=== PATIENT | female | born 1960 | race Caucasian/White ===

== ENCOUNTER → 2020-03-01 16:25 | Outpatient (BNVA) | payer OTHER, SELFPAY | PROVIDERS: Family Provider Nurse Practitioner Family; PCP Registered Nurse; Visit Provider Nurse Practitioner Family | DX: Z79.899 Other long term (current) drug therapy (principal); I10 Essential (primary) hypertension | CPT/HCPCS: 80048 ==

== ENCOUNTER → 2020-05-28 08:55 | Outpatient (BNVA) | payer OTHER, SELFPAY | PROVIDERS: Family Provider Nurse Practitioner Family; PCP Registered Nurse; Visit Provider Internal Medicine | DX: Z12.11 Encounter for screening for malignant neoplasm of colon (principal); Z20.828 Contact with and (suspected) exposure to other viral communicable diseases | CPT/HCPCS: 87635 ==

== ENCOUNTER 2020-05-31 05:53 | Day surgery (SDC) | payer OTHER, SELFPAY ==
[2020-05-27 10:56] VITALS: BMI 29.2
[2020-05-31 06:04] VITALS: BP 135/88; PULSE 76; RESP 20; TEMP 36.5; O2SAT 99
[2020-05-31 06:06] VITALS: BMI 29.2
[2020-05-31] MEDS: sodium chloride 0.9% 1,000 ML 30 ML IV (06:26)
--- NOTE | 2020-05-31 06:54 | W.PM.OPSFHP ---
Same Day Surgery H&P Indication for Procedure/HPI DATE OF PROCEDURE: May 31, 2020 CHIEF COMPLAINT/INDICATIONFOR SURGICAL PROCEDURE: Family history of colon cancer, PREOP DIAGNOSIS: Family history of colon cancer PLANNED PROCEDRUE: Operation Date: 05/31/20 07:05 Proposed Procedures p Colonoscopy 57743 Z12.11(Not Applicable) - Arash Sommers MD Medications/Allergies* Allergies/Adverse Reactions Allergy/AdvReac Type Severity Reaction Status Date / Time Sulfa (Sulfonamide Allergy Mild RASH Verified 05/31/20 06:24 Antibiotics) Current Medications: Generic Name Dose Route Start Last Admin Trade Name Freq PRN Reason Stop Dose Admin Sodium Chloride 1,000 mls @ 30 mls/hr 05/31/20 06:15 05/31/20 06:26 Sodium Chloride 0.9% IV 06/01/20 06:14 30 mls/hr .Q24H SHANIQUA Administration Pertinent History/Comorbid Conditions* Medical History (Updated 05/06/20 @ 16:22 by Shyann Bro APN, SHAUN) Hemorrhoid Hypertension Osteoarthritis Postmenopausal HRT (hormone replacement therapy) Surgical History (Updated 05/06/20 @ 16:09 by Shyann Bro APN, SHAUN) H/O arthroscopy of knee (~2018) right meniscal tear repair H/O dilation and curettage History of total abdominal hysterectomy and bilateral salpingo-oophorectomy (~1991) Family History (Updated 05/06/20 @ 16:57 by Shyann Bro APN, SHAUN) Skin cancer Father Dementia Mother Cancer Family/Other 3 Aunts with Colon cancer Hypertension Parkinsons Mother Thyroid disease Father Mother Social History Additional social history: Tobacco use: Denies Alcohol use: Denies Drug use: Denies Pertinent Exam Findings alert, oriented x 3, clear to auscultation bilaterally and regular rate & rhythm Recommendations Surgery/Procedure today Coding Level of Care Code Acute Professor Of Literature for Inderjit Rosenthal
--- NOTE | 2020-05-31 06:57 | ANES.PREANE2 ---
Pre-Anesthetic Assessment Pre-Anesthetic Assessment: Height/Weight: Height 1.57 m Weight 72.575 kg Temp Pulse Resp BP Pulse Ox 97.7 F 76 20 H 135/88 99 05/31/20 06:04 05/31/20 06:04 05/31/20 06:04 05/31/20 06:04 05/31/20 06:04 Preop Diagnosis: Family history of colon cancer Proposed Procedure: Operation Date: 05/31/20 07:05 Proposed Procedures p Colonoscopy 71241 Z12.11(Not Applicable) - Arash Sommers MD Was Beta Evaristo taken within 24 hours: N/A Last intake: Intake Last Liquid Date 05/30/20 Last Liquid Time 20:30 Last Solid Date 05/29/20 Last Solid Time 08:00 Social: Social History: No alcohol and No tobacco Exam: Pre-Anes Outpt Exam: alert, oriented x 3, clear to auscultation bilaterally and regular rate & rhythm Airway: Submandibular: WNL Cervical ROM: WNL MP: 1 History/ROS: No significant history except as noted Pulmonary: Pulmonary: None reported CV/HEM: CV/HEM: HTN : : None reported Hepatic: Hepatic: None reported GI: GI: None reported Metabolic: Metabolic: None reported Musc/skel: Musc/skel: None reported Neuropsych: Neuropsych: None reported Anesthetic Plan: ASA status: 1 Anesthesia: Anesthesia Evaluation and MAC Risk of > 500 ml blood loss (7ml/kg in children): No Meds/Allergies Current Medications: Current Medications Generic Name Dose Route Start Last Admin Trade Name Freq PRN Reason Stop Dose Admin Sodium Chloride 1,000 mls @ 30 ml s/hr 05/31/20 06:15 05/31/20 06:26 Sodium Chloride 0.9% IV 06/01/20 06:14 30 mls/hr .Q24H SHANIQUA Administration PFSH Anesthesia PFSH: Medical History (Updated 05/06/20 @ 16:22 by Shyann Bro APN, SHAUN) Hemorrhoid Hypertension Osteoarthritis Postmenopausal HRT (hormone replacement therapy) Surgical History (Updated 05/06/20 @ 16:09 by Shyann Bro APN, SHAUN) H/O arthroscopy of knee (~2018) right meniscal tear repair H/O dilation and curettage History of total abdominal hysterectomy and bilateral salpingo-oophorectomy (~1991) Family History (Updated 05/06/20 @ 16:57 by Shyann Bro APN, SHAUN) Family/Other Cancer 3 Aunts with Colon cancer Father Thyroid disease Skin cancer Mother Thyroid disease Parkinsons Dementia Other Hypertension Social History (Updated 05/06/20 @ 16:10 by Shyann Bro APN, SHAUN) Additional social history: Tobacco use: Denies Alcohol use: Denies Drug use: Denies Data Anesthesia Cardiac Studies: No Data to Display
[2020-05-31 07:39] VITALS: BP 119/70; PULSE 75; RESP 16; TEMP 36.1; O2SAT 98
[2020-05-31 07:49] VITALS: BP 135/80; PULSE 71; RESP 18; O2SAT 99
== END 2020-05-31 08:05 | disposition home or self-care (01) ==
PROVIDERS: Family Provider Nurse Practitioner Family; PCP Registered Nurse; Visit Provider Surgery
PROC: 0DJD8ZZ Inspection of Lower Intestinal Tract, Via Natural or Artificial Opening Endoscopic (ICD-10-PCS; CPT 45378; principal; 2020-05-31 07:00)
DX: Z12.11 Encounter for screening for malignant neoplasm of colon (principal); K63.5 Polyp of colon; K57.30 Diverticulosis of large intestine without perforation or abscess without bleeding; K64.8 Other hemorrhoids; I10 Essential (primary) hypertension; Z88.2 Allergy status to sulfonamides; Z80.0 Family history of malignant neoplasm of digestive organs
CPT/HCPCS: 12345; 45380; 88305; J2704; J7030

== ENCOUNTER 2020-06-25 14:48 | Outpatient (CLI) | payer OTHER, SELFPAY ==
--- NOTE | 2020-06-25 15:00 | MM_ITS ---
WS: [id number] BILATERAL DIGITAL SCREENING MAMMOGRAPHY WITH CAD CLINICAL INFORMATION: screening HISTORY: Screening mammogram. No current complaints. COMPARISON: TECHNIQUE: Bilateral CC and MLO views. FINDINGS: The breasts are composed of heterogeneous fibroglandular density tissue, which can limit the detectio n of small underlying mass lesions. No suspicious mass, asymmetry, calcifications, or architectural d istortion. No evidence of malignancy. Punctate calcifications. MM/[place] [id number] IMPRESSION: BI-RADS: 2-Benign FOLLOW UP: 1 Year Follow-up Recommend return to annual screening mammography.
== END 2020-06-25 14:49 | disposition home or self-care (01) ==
LOC: RADSHAW 14:53
PROVIDERS: PCP Registered Nurse; Visit Provider Nurse Practitioner Women's Health
DX: Z12.31 Encounter for screening mammogram for malignant neoplasm of breast (principal)
CPT/HCPCS: 77067

== ENCOUNTER → 2020-09-23 10:40 | Outpatient (BNVA) | payer OTHER, SELFPAY | PROVIDERS: PCP Registered Nurse; Visit Provider Nurse Practitioner Family | DX: I10 Essential (primary) hypertension (principal); M19.90 Unspecified osteoarthritis, unspecified site | CPT/HCPCS: 80048 ==

== ENCOUNTER 2021-06-30 15:15 | Outpatient (CLI) | payer OTHER, SELFPAY ==
--- NOTE | 2021-06-30 15:30 | MM_ITS ---
WS: [id number] BILATERAL SCREENING DIGITAL MAMMOGRAM WITH CAD HISTORY: Z12.39 - Encounter for other screening for malignant neoplasm... COMPARISON: 06/25/2020, 07/12/2018 Bilateral CC and MLO views submitted. Computer aided detection analyzed. Breast composition: The breasts are extremely dense, which lowers the sensitivity of mammography. No suspicious masses, microcalcifications or architectural distortion. Numerous calcifications are scatt ered within each breast. There are extensive asymmetries. No interval change. MM/[place] [id number] IMPRESSION: BI-RADS: 2-Benign FOLLOW UP: 1 Year Follow-up
== END 2021-06-30 15:16 | disposition home or self-care (01) ==
LOC: RADSHAW 15:19
PROVIDERS: PCP Registered Nurse; Visit Provider Nurse Practitioner Women's Health
DX: Z12.31 Encounter for screening mammogram for malignant neoplasm of breast (principal)
CPT/HCPCS: 77067

== ENCOUNTER 2021-08-23 10:55 | Outpatient (CLI) | payer OTHER, SELFPAY ==
[2021-08-23 11:10] VITALS: BP 143/83; PULSE 73; RESP 18; TEMP 36.8; O2SAT 73; BMI 29.2
[2021-08-23 11:38] VITALS: BMI 29.2
[2021-08-23 11:56] VITALS: BP 130/80; PULSE 69; RESP 20; TEMP 36.3; O2SAT 94
[2021-08-23 12:00] VITALS: BP 130/78; PULSE 73; RESP 18; TEMP 36.9; O2SAT 98
[2021-08-23 13:00] VITALS: BP 130/78; PULSE 73; RESP 18; TEMP 36.9
== END 2021-08-23 10:56 | disposition home or self-care (01) ==
PROVIDERS: PCP Registered Nurse; Visit Provider Nurse Practitioner Family
DX: U07.1 COVID-19 (principal)
CPT/HCPCS: 96365

== ENCOUNTER → 2021-10-13 11:57 | Outpatient (BNVA) | payer OTHER, SELFPAY | PROVIDERS: PCP Registered Nurse; Visit Provider Family Medicine | DX: M25.561 Pain in right knee (principal); M17.11 Unilateral primary osteoarthritis, right knee; M19.90 Unspecified osteoarthritis, unspecified site; I10 Essential (primary) hypertension; Z13.820 Encounter for screening for osteoporosis; M54.50 Low back pain, unspecified; G89.29 Other chronic pain; Z76.89 Persons encountering health services in other specified circumstances | CPT/HCPCS: 80053; 80061; 84443; 85025 ==

== ENCOUNTER 2021-10-17 07:03 | Outpatient (CLI) | payer OTHER, SELFPAY ==
--- NOTE | 2021-10-17 07:21 | XR_ITS ---
WS: [id number] XR lumbar spine 2-3V* [id number] REASON FOR EXAM: Chronic lumbar back pain, arthritis FINDINGS: No significant compression deformity or other focal vertebral body abnormality. Moderate narrowing of the L5-S1 disc space with marginal sclerosis and osteophytic spurring. In the presumed neutral position, the lateral image demonstrates 5 mm of anterolisthesis of L4 in rel ation to L5. XR/XR lumbar spine 2-3V* [id number] IMPRESSION: Degenerative spondylosis as above.
== END 2021-10-17 07:04 | disposition home or self-care (01) ==
LOC: RAD 07:17
PROVIDERS: PCP Registered Nurse; Visit Provider Family Medicine
DX: G89.29 Other chronic pain (principal); M47.816 Spondylosis without myelopathy or radiculopathy, lumbar region
CPT/HCPCS: 72100

== ENCOUNTER → 2021-12-28 08:58 | Outpatient (BNVA) | payer OTHER, SELFPAY | PROVIDERS: PCP Registered Nurse; Visit Provider Family Medicine | DX: M54.50 Low back pain, unspecified (principal); G89.29 Other chronic pain; M25.50 Pain in unspecified joint | CPT/HCPCS: 84550; 85025; 86038; 86431 ==

== ENCOUNTER → 2022-06-22 17:40 | Outpatient (BNVA) | payer OTHER, SELFPAY | PROVIDERS: Visit Provider Emergency Medicine | DX: S89.91XA Unspecified injury of right lower leg, initial encounter (principal) | CPT/HCPCS: 73562 ==

== ENCOUNTER 2022-07-19 17:12 | Outpatient (CLI) | payer OTHER, SELFPAY ==
--- NOTE | 2022-07-19 17:24 | XR_ITS ---
WS: [id number] Left knee, 3 views, 07/19/2022 Clinical Data: TRAUMA 4 WEEKS AGO Comparison: None. Findings: No fractures or dislocations are seen. There is joint space narrowing of the medial and lateral space s with spurring of the medial lateral femoral condyles and the lateral tibial plateau. There is poste rior spurring of the patella.. The patella is intact. The soft tissues are unremarkable. There is a small fibroxanthoma of the distal lateral left femur. XR/XR knee LT 3V* [id number] Impression: 1. Negative for fracture of the left knee. 2. Moderate osteoarthritis of the left knee. Kellgren-Russ Classification: grade 3 (moderate): moderate multiple osteoph ytes, definite narrowing of joint space and some sclerosis and possible deformi ty of bone ends
== END 2022-07-19 17:13 | disposition home or self-care (01) ==
LOC: RAD 17:17
PROVIDERS: PCP Family Medicine; Visit Provider Family Medicine
DX: X58.XXXA Exposure to other specified factors, initial encounter; M17.12 Unilateral primary osteoarthritis, left knee; S89.92XA Unspecified injury of left lower leg, initial encounter
CPT/HCPCS: 73562

== ENCOUNTER 2022-07-25 16:47 | Outpatient (CLI) | payer OTHER, SELFPAY ==
--- NOTE | 2022-07-25 16:45 | MR_ITS ---
WS: [id number] MRI LEFT KNEE NONCONTRAST TECHNIQUE: Axial PD, coronal PD fat sat, coronal PD, sagittal PD, and sagittal PD fat-sat images obta ined. CLINICAL INFORMATION: S83.207A - Unspecified tear of unspecified meniscus, curr... COMPARISON: None. FINDINGS: Hypertrophic changes along the joint line. Hypertrophic patella. Distal quadriceps and patella tendon s are intact. Normal ACL and PCL. Small suprapatellar effusion. Soft tissue edema in the prepatellar and patellar soft tissues. Lobulated popliteal cyst measuring 1.6 x 1.2 x 4.8 cm Moderate chondromalacia patella. No subchondral edema. Normal medial and lateral patellar retinaculum . Normal MCL and LCL. Normal popliteus. Joint space narrowing worse lateral joint compartment with whitaker bchondral edema along the lateral tibial plateau. Peripheral extrusion of the lateral meniscus. Chronic appearing thinning and tear of the body of the lateral meniscus with blunting of the anterior and posterior horns. Chronic intrasubstance signal abnormality medial meniscus. MR/MR knee LT wo con* [id number] IMPRESSION: 1. Normal ACL and PCL. 2. Advanced joint space narrowing lateral joint compartment with peripheral ex trusion of the lateral meniscus. 3. Complete loss of the lateral joint space with [id number] articulation. Ad vanced chronic appearing thinning with tear of the body of the lateral meniscus . Blunting of the anterior and posterior horns. 4. Chronic thinning of the medial meniscus. 5. Small suprapatellar effusion. 6. Moderate chondromalacia patella. 7. Ossified loose bodies along the dorsal PCL. 8. Lobulated popliteal cyst measuring 1.6 x 1.2 x 4.8 cm Outbridge grading:
== END 2022-07-25 16:48 | disposition home or self-care (01) ==
LOC: RAD 16:48
PROVIDERS: PCP Family Medicine; Visit Provider Family Medicine
DX: S83.282A Other tear of lateral meniscus, current injury, left knee, initial encounter (principal); X58.XXXA Exposure to other specified factors, initial encounter; M22.42 Chondromalacia patellae, left knee; M23.42 Loose body in knee, left knee; M71.22 Synovial cyst of popliteal space [Baker], left knee
CPT/HCPCS: 73721

== ENCOUNTER → 2022-10-20 13:55 | Outpatient (BNVA) | payer OTHER, SELFPAY | PROVIDERS: PCP Family Medicine; Visit Provider Student in an Organized Health Care Education/Training Program | DX: M94.262 Chondromalacia, left knee (principal); S83.207A Unspecified tear of unspecified meniscus, current injury, left knee, initial encounter; W01.0XXA Fall on same level from slipping, tripping and stumbling without subsequent striking against object, initial encounter | CPT/HCPCS: 73560; 73565 ==

== ENCOUNTER → 2022-10-23 09:10 | Outpatient (BNVA) | payer OTHER, SELFPAY | PROVIDERS: PCP Family Medicine; Visit Provider Family Medicine | DX: Z79.890 Hormone replacement therapy (principal); I10 Essential (primary) hypertension | CPT/HCPCS: 80048 ==

== ENCOUNTER 2022-12-13 05:52 | Day surgery (SDC) | payer OTHER, SELFPAY ==
[2022-12-12 09:24] VITALS: BMI 29.2
[2022-12-13] VITALS (7 sets, daily range): BP systolic 122–148; BP diastolic 77–86; PULSE 71–81; RESP 16–20; TEMP 36.1–36.2; O2SAT 92–99
[2022-12-13] MEDS: sodium chloride 0.9% 1,000 ML 30 ML IV (06:22)
[2022-12-13] MEDS: ketorolac 30 mg/mL INJ IVP (06:22)
[2022-12-13] MEDS: acetaminophen 1,000 MG/100 ML PIGGYBACK 400 MG IV (06:24)
--- NOTE | 2022-12-13 06:55 | W.PM.OPSFHP ---
Same Day Surgery H&P Indication for Procedure/HPI DATE OF PROCEDURE: December 13, 2022 CHIEF COMPLAINT/INDICATIONFOR SURGICAL PROCEDURE: Left knee lateral meniscus tear PREOP DIAGNOSIS: Left knee lateral meniscus tear PLANNED PROCEDURE: Operation Date: 12/13/22 07:00 Proposed Procedures p Left knee diagnostic and surgical with chondroplasty and partial medial menisectomy 28718,,S83.207A,M94.262(Left) - Isra Ailyn, DO s Chondroplasty(Left) - Isra Ailyn, DO s Meniscectomy(Left) - Isra [place], DO Medications/Allergies* Allergies/Adverse Reactions Allergy/AdvReac Type Severity Reaction Status Date / Time Sulfa (Sulfonamide Allergy Mild RASH Verified 12/13/22 06:03 Antibiotics) Current Medications: Generic Name Dose Route Start Last Admin Trade Name Freq PRN Reason Stop Dose Admin Sodium Chloride 1,000 mls @ 30 mls/hr 12/13/22 06:00 12/13/22 06:22 Sodium Chloride 0.9% IV 12/14/22 05:59 30 mls/hr .Q24H SHANIQUA Administration Pertinent History/Comorbid Conditions* Medical History (Updated 09/03/22 @ 11:02 by Matthieu Ocasio DO) Chondromalacia, left knee Colon polyps Hemorrhoid Hypertension Osteoarthritis Postmenopausal HRT (hormone replacement therapy) Surgical History (Updated 05/31/20 @ 07:38 by Arash Sommers MD) H/O arthroscopy of knee (~2018) right meniscal tear repair H/O dilation and curettage History of total abdominal hysterectomy and bilateral salpingo-oophorectomy (~1991) Status post colonoscopy with polypectomy (05/31/20) sigmoid polyp, diverticulosis and hemorrhoids, repeat in 5 years Family History (Updated 05/06/20 @ 16:57 by Shyann Bro APN, WHDELMER) Skin cancer Father Dementia Mother Cancer Family/Other 3 Aunts with Colon cancer Hypertension Parkinsons Mother Thyroid disease Father Mother Social History Smoking and tobacco status: never smoked Alcohol intake: never Adopted: No Caregiver/support person: No Lives independently: Yes Household members: spouse Housing: House Marital status: Number of children: 1 Number of grandchildren: 2 Highest education level completed: Associate Degree: Occupational, Technical, Vocational Program service: No Current occupational status: employed Current occupation: [employer] Additional social history: Tobacco use: Denies Alcohol use: Denies Drug use: Denies Pertinent Exam Findings alert, operative site marked and procedure specific exam findings There are no gross deformities of the hips or ankles. The range of motion of both hips and ankles are normal and no tenderness to palpation. Both knees show no effusion bilaterally. There is 5/5 flexion and extension of the knees against resistance. Gait was assessed and is normal. There is no tenderness to palpation over the medial compartment, there is tenderness palpation over the lateral joint line discomfort with Betty's examination but no palpable click.? Mild patellar grind noted. There is a negative lachmans test and both knees are stable to varus and valgus stress testing.? Patient has subtle valgus deformity noted to her bilateral knees. Recommendations Surgery/Procedure today Other Plans: Plan for or today for left knee diagnostic and surgical arthroscopy with partial lateral meniscectomy and chondroplasty. Talked about risk benefits complication alternatives surgery. She understands risk of surgery and agrees to proceed. She does understand that she does have arthritis in her knee and this may not be completely relieve all of her pain symptoms from this procedure but would address her acute onset of pain since her injury. Prior to that she had no pain. I am hopeful that addressing her meniscus will help alleviate quite a bit of the symptoms that she currently has. Otherwise I feel she would potentially be a candidate for gel injections after surgery. Patient understands and agrees with current plan. All questions answered. Coding Level of Care Code Acute Code for Chg Fwd
[2022-12-13] MEDS: ceFAZolin 2,000 MG in sodium chloride 0.9% (plus) 50 ML 100 MG IV (07:06)
[2022-12-13] MEDS: lidocaine-epi 2% 20 mL INJ 40 ML INJECTION (07:25)
[2022-12-13] MEDS: EPINEPHrine 1 mg/mL INJ XX (07:35)
[2022-12-13] MEDS: ondansetron 2 mg/ML SDV 2 mL 4 MG IVP (08:42)
[2022-12-13] MEDS: diphenhydrAMINE 50 mg/mL SDV 1mL 12.5 MG IVP (09:07)
--- NOTE | 2022-12-13 09:34 | P.ANESASSM_ITS ---
Pre-Anesthetic Assessment Height/Weight: Height 1.57 m Weight 72.575 kg Temp Pulse Resp BP Pulse Ox O2 Del Method O2 Flow Rate 97.2 F L 77 17 143/86 92 6 12/13/22 08:34 12/13/22 08:34 12/13/22 08:34 12/13/22 08:34 12/13/22 08:34 12/13/22 08:34 12/13/22 08:10 Preop Diagnosis: Left knee lateral meniscus tear Operation Date: 12/13/22 07:00 Proposed Procedures p Left knee diagnostic and surgical with chondroplasty and partial medial menisectomy 24858,,S83.207A,M94.262(Left) - Isra [place], DO s Chondroplasty(Left) - Isra [place], DO s Meniscectomy(Left) - Isra Robertson DO Familial anesthetic complications: none Was Beta Evaristo taken within 24 hours: N/A Was Clonidine taken within 24 hours: N/A Last intake: Intake Last Liquid Date 12/12/22 Last Liquid Time 20:00 Last Solid Date 12/12/22 Last Solid Time 20:00 Social No alcohol and No tobacco Exam alert, oriented x 3, clear to auscultation bilaterally and regular rate & rhythm Airway Submandibular: within normal limits Cervical ROM: within normal limits Mallampati: Class II Dentition: full CV/HEM Hypertension Musc/skel Lower Back Pain and Osteoarthritis/DJD Anesthetic Plan ASA status: 2 Anesthesia: General and Regional (specify below) (left adductor blk) Medications/Allergies Home Medications Medication Instructions Recorded Confirmed Last Taken Type celecoxib 200 mg capsule (Celebrex) 200 mg PO BID #180 caps 08/23/22 12/13/22 12/12/22 05:00 Rx hydrochlorothiazide 12.5 mg capsule 12.5 mg PO DAILY #90 caps 08/23/22 12/13/22 12/12/22 05:00 Rx estradiol 2 mg tablet See Rx Instructions .Route 10/23/22 12/13/22 12/12/22 05:00 Rx .COMPLEX #90 tabs aspirin 81 mg capsule 81 mg PO DAILY Postoperative blood 12/13/22 Unknown Rx clot prevention 14 days #14 caps hydrocodone 5 mg-acetaminophen 325 1 tab PO Q6H PRN pain 7 days #28 12/13/22 Unknown Rx mg tablet tabs ondansetron 4 mg disintegrating 4 mg PO DAILY 5 days #5 tabs 12/13/22 Unknown Rx tablet Allergies Allergy/AdvReac Type Severity Reaction Status Date / Time Sulfa (Sulfonamide Allergy Mild RASH Verified 12/13/22 06:03 Antibiotics) Current Medications Generic Name Dose Route Start Last Admin Trade Name Freq PRN Reason Stop Dose Admin Diphenhydramine HCl 12.5 mg 12/13/22 05:56 12/13/22 09:07 Diphenhydramine 50 Mg/Ml Sdv 1ml IVP 12.5 mg ONCE PRN Administration Postop N/V Sodium Chloride 1,000 mls @ 30 mls/hr 12/13/22 06:00 12/13/22 08:35 Sodium Chloride 0.9% IV 12/14/22 05:59 Infused .Q24H SHANIQUA Infusion Ondansetron HCl 4 mg 12/13/22 07:59 12/13/22 08:42 Ondansetron 2 Mg/Ml Sdv 2 Ml IVP 4 mg ONCE PRN Administration Nausea/Vomiting PACU PHASE II [facility] Anesthesia Medical History Chondromalacia, left knee Colon polyps Hemorrhoid Hypertension Osteoarthritis Postmenopausal HRT (hormone replacement therapy) Surgical History H/O arthroscopy of knee (~2018) right meniscal tear repair H/O dilation and curettage History of total abdominal hysterectomy and bilateral salpingo-oophorectomy (~1991) Status post colonoscopy with polypectomy (05/31/20) sigmoid polyp, diverticulosis and hemorrhoids, repeat in 5 years Family History Family/Other Cancer 3 Aunts with Colon cancer Father Thyroid disease Skin cancer Mother Thyroid disease Parkinsons Dementia Other Hypertension Social History Smoking and tobacco status: never smoked Alcohol intake: never Adopted: No Caregiver/support person: No Lives independently: Yes Household members: spouse Housing: House Marital status: Number of children: 1 Number of grandchildren: 2 Highest education level completed: Associate Degree: Occupational, Technical, Vocational Program service: No Current occupational status: employed Current occupation: [employer] Additional social history: Tobacco use: Denies Alcohol use: Denies Drug use: Denies Female Reproductive History Spontaneous abortions: No Data Anesthesia Cardiac Studies: No Data to Display Anesthesia Procedures Nerve Block Nerve Block 1: Main Anesthesia: general anesthesia Time Out Performed: Yes Consent: requested by attending/covering physician, from patient, risks and benefits reviewed and patient agrees to proceed Nerve block location: adductor canal (left) Anesthesia monitors applied: pulse oximetry, EKG, BP cuff and oxygen Nerve block position: supine Anesthetic Used: ropivicaine 0.5% Amount of anesthesia used (mL): 20 Ultrasound used to: recognize landmarks Nerve Stimulator Used?: No Interscalene/Femoral BLK: 4 stimuplex 21 g needle used for position and inplane approach Injection: neg aspiration of heme Patient Tolerated Procedure: well Complications: none
[2022-12-13] MEDS: hetastarch 30 GM/500 ML PREMIX 500 GM (10:27)
--- NOTE | 2022-12-13 11:09 | SUR.PHASEII ---
1109-Patient was having PONV at time of discharge. An order was given to administer Hespan. Infusion is going now and patient is tolerating well.
--- NOTE | 2022-12-13 11:25 | SUR.PHASEII ---
PONV improved with infusion
--- NOTE | 2022-12-13 12:12 | P.OP_ITS ---
Brief Operative Note Date of procedure: 12/13/22 Pre-op diagnosis: Left knee lateral meniscus tear and chondromalacia Post-op diagnosis: same Procedure Done: Left knee diagnostic and surgical arthroscopy with partial medial and partial lateral meniscectomy Left knee diagnostic and surgical arthroscopy with extensive synovectomy of medial lateral and patellofemoral compartments Left knee diagnostic and surgical arthroscopy lateral and patellofemoral compartment chondroplasties Surgeon: Isra Robertson Estimated blood loss (mL): 5 Complications: None Post-op Plan: Taken to PACU in stable condition recovering well. Pain controlled. Patient will receive appropriate discharge instructions as well as pain medication po stoperatively. We will allowed to begin to progress weightbearing as tolerated to the left lower extremity. We will follow-up with me in the office in 2 weeks. Will be on an aspirin postoperatively for DVT prophylaxis. Condition: stable Disposition: same day Coding Level of Care Code Acute Code for Inderjit Rosenthal
--- NOTE | 2022-12-13 12:12 | PM.PACU ---
PACU note Narrative: Patient taken to PACU in stable condition. Postoperative nausea. dressing clean dry and intact toes warm well-perfused brisk cap refill less than 2 seconds distal pulse palpable able to wiggle toes plantarflex and dorsiflex ankle compartment soft compressible. Exam: awake Disposition: discharged
--- NOTE | 2022-12-13 12:13 | P.OP_ITS ---
Operative Report Date of procedure: December 13, 2022 Pre-op diagnosis: Preop Diagnosis Left knee lateral meniscus tear Procedure: Post-op diagnosis: Left knee medial and lateral meniscus tear Left knee tricompartment chondromalacia Left knee extensive synovitis Procedure done: Left knee diagnostic and surgical arthroscopy partial medial and partial lateral meniscectomies Left knee diagnostic and surgical arthroscopy lateral, patellofemoral compartment chondroplasties Left knee diagnostic and surgical arthroscopy extensive synovectomy of medial, lateral and patellofemoral compartments. Surgeon: Isra Robertson DO Estimated blood loss: 5 No tourniquet was used IV fluids: See anesthesia record Complications: None Findings: See operative report narrative Condition: stable Disposition: same day Brief History: Patient's been seen and worked up in the outpatient setting findings consistent with the preoperative diagnosis.? She has had ongoing left knee pain.? Patient had no pain in her left knee prior to the injury that she sustained which since then she has had significant left knee pain with mechanical locking and catching that causes severe pain. She had an MRI which showed findings consistent with tear of the lateral meniscus as well as chondromalacia in the lateral compartment most pronounced we ultimately had trialed a cortisone injection but this is subsequently worn off and only provided temporary relief. This point time given she did not have any pain in her knee prior to we talked about treatment options as far as nonoperative and operative invention.? We talked about at this point offering a diagnostic and surgical arthroscopy with addressing the meniscus as well as likely chondroplasties given I know she does have some chondromalacia.? We talked about the roles of D&S arthroscopy in a patient with existing arthritis and she does understand that this surgery is not a guarantee of curative of her pain and she will likely have some residual pain given her arthritis but hard to differentiate how much is from her arthritis versus her meniscus tears.? At this point time this is her next best treatment option as all else is failed and through shared decision making she would like to proceed with a left knee diagnostic and surgical arthroscopy.? Once again she understands the risk benefits complication alternatives with surgery understanding her risk of surgery she agrees to proceed.? All questions answered. MR/MR knee LT wo con* [id number] IMPRESSION: 1.? Normal ACL and PCL. 2.? Advanced joint space narrowing lateral joint compartment with peripheral extrusion of the lateral meniscus. 3.? Complete loss of the lateral joint space with [id number] articulation. Advanced chronic appearing thinning with tear of the body of the lateral meniscus. Blunting of the anterior and posterior horns. 4.? Chronic thinning of the medial meniscus. 5.? Small suprapatellar effusion. 6.? Moderate chondromalacia patella. 7.? Ossified loose bodies along the dorsal PCL. 8.? Lobulated popliteal cyst measuring 1.6 x 1.2 x 4.8 cm ? Procedure: Patient seen and evaluated in the preoperative holding area.? Consent was reviewed and signed with patient.? Correct extremity was then marked.? Patient seen evaluated Anesthesia Department once cleared for surgery patient was taken back to the operative suite.? Patient was transported onto the OR table in supine position.? All bony prominences well-padded patient was appropriate secured to the bed.? Once appropriately anesthetized a nonsterile tourniquet was applied to the right thigh.? The right lower extremity was then prepped and draped in standard orthopedic fashion.? Final timeout performed.? Patient received appropriate preoperative antibiotics. Patient received local anesthetic of lidocaine with epinephrine into the joint as well as around the portal sites.? No tourniquet was inflated during this case. A standard 2 portal vertical incision diagnostic and surgical arthroscopy of the right knee was performed in standard fashion.? Small stab incision made in the inferolateral portal introduced trocar and arthroscope into the suprapatellar pouch.? Suprapatellar pouch was subsequently visualized and found to have significant synovitis but no loose bodies.? Patient had noticeable significant infrapatellar fat pad and thickening hypertrophic within the patellofemoral compartment. ?The medial gutter was free of loose bodies I then introduced the arthroscope into the medial compartment.? Within the medial compartment I then established my inferior medial working portal utilizing spinal needle outside in technique.? Once established I then visualized our articular cartilage of the medial compartment with a valgus stress.? Patient was found to have grade 2-3 chondromalacia throughout the medial compartment.? Next I inspected the meniscus.? With an arthroscopic probe was utilized to visual? all aspects of the meniscus.? Meniscal root was found to be intact.? Utilizing the arthroscopic probe patient was found to have a oblique flap tear of the body of the medial meniscus. I subsequently introduced arthroscopic shaver and completed a partial medial meniscectomy to stable meniscal tissue. The cartilage of the medial compartment was probed and found to be stable no chondroplasty performed.? Next a introduced the arthroscope to the intercondylar notch.? PCL and ACL were intact. patient had significant thickening of the infrapatellar fat pad spanning into the medial and lateral compartments.? I then performed an extensive synovectomy with the arthroscopic shaver of the patellofemoral medial and lateral compartments as well as the intercondylar notch. Advance the scope into the retrocruciate space and no loose bodies were found. Next I introduced the arthroscope into the lateral compartment the lateral compartment was found to have grade?4 chondromalacia throughout.?? The meniscus was inspected and found massive tear extending from the posterior horn all the way to the root as well as into the body and majority of the anterior horn. Patient had a very pronounced remanent only hanging on by a small connection to the root. This was completely unstable and detached from the rest of the meniscus at the popliteal hiatus and this would sublux in and out posteriorly in between the condyles decision was made given this large unstable meniscus performed a partial lateral meniscectomy in the left small portion of the medial and anterior left this meniscectomy was performed with arthroscopic shaver as well as biter and grasper and then utilized a thermal wand to anneal the edges to stable meniscal tissue.this completed my partial lateral meniscectomy. I did utilize a thermal wand and shaver to perform a chondroplasty of the grade IV chondromalacia particularly in areas where there is unstable cartilage. Next of the arthroscope was placed into the lateral gutter and this was free of loose bodies.? Finally I reintroduced the arthroscope into the patellofemoral compartment.? The patellofemoral was found to have grade 2-3 chondromalacia.??Arthroscopic shaver and thermal wand was used to perform a chondroplasty of the patellofemoral compartment.? This was taken to stable articular tissue.? Next I used the a rthroscopic shaver to complete my extensive synovectomy and debridement of the infrapatellar thickened and hypertrophic fat pad to have complete space of the patellofemoral compartment on the medial aspect.? Next I then switched the arthroscope to the medial working portal and visualized the extent extensive synovitis laterally and then introduced the arthroscopic shaver and completed my synovectomy.? This completed patient's diagnostic and surgical arthroscopy.? All fluid was suctioned from the joint.? Once again hemostasis was satisfactory.? All instruments were withdrawn.? Portal sites were closed with interrupted nylon suture.? Dressed with Xeroform 4 x 4's ABD Curlex and Hans wrap.? Patient was then subsequently awakened from anesthesia and taken to PACU in stable condition. Disposition: Patient taken to PACU in stable condition recovering well.? Will receive appropriate discharge structure as well as pain medication postoperatively as well as daily aspirin for DVT prophylaxis.? We will have patient follow-up with us in the office in 2 weeks.? We will weightbearing as tolerated to the left lower extremity.? Patient understands and agrees with current plan.? All questions answered.
--- NOTE | 2022-12-13 16:54 | ANE.PACU2 ---
Inpatient post-anesthesia follow up: Airway intact: Yes Vital signs: Temperature 97.2 F Pulse Rate 77 Respiratory Rate 17 Blood Pressure 143/86 Pulse Oximetry 92 Oxygen Delivery Me thod Room Air Oxygen Flow Rate 6 Fraction of Inspir ed Oxygen Hydration adequate: Yes Nausea and vomiting: Yes Pain level: 3 Mental status: Baseline
== END 2022-12-13 11:27 | disposition home or self-care (01) ==
PROVIDERS: PCP Family Medicine; Visit Provider Student in an Organized Health Care Education/Training Program
PROC: (CPT 29870; principal; 2022-12-13 07:00)
PROC: (CPT 29876; 2022-12-13 07:00)
PROC: (CPT 29876; 2022-12-13 07:00)
DX: S83.242A Other tear of medial meniscus, current injury, left knee, initial encounter (principal); S83.282A Other tear of lateral meniscus, current injury, left knee, initial encounter; X58.XXXA Exposure to other specified factors, initial encounter; M94.262 Chondromalacia, left knee; M65.9 Synovitis and tenosynovitis, unspecified; I10 Essential (primary) hypertension; Z79.82 Long term (current) use of aspirin
CPT/HCPCS: 29876; 29880; J0131; J0171; J0690; J1100; J1200; J1885; J2405; J2704; J2795; J3010; J3490; J7030

== ENCOUNTER → 2023-02-07 08:04 | Outpatient (BNVA) | payer OTHER, SELFPAY | PROVIDERS: PCP Family Medicine; Visit Provider Nurse Practitioner Family | DX: M17.11 Unilateral primary osteoarthritis, right knee (principal); M94.262 Chondromalacia, left knee | CPT/HCPCS: 73560; 73565 ==

== ENCOUNTER → 2023-11-14 09:40 | Outpatient (BNVA) | payer OTHER, SELFPAY | PROVIDERS: PCP Family Medicine; Visit Provider Family Medicine | DX: I10 Essential (primary) hypertension (principal); R10.13 Epigastric pain | CPT/HCPCS: 80053; 80061; 84443; 85027 ==

== ENCOUNTER 2024-01-16 16:24 | Outpatient (CLI) | payer OTHER, SELFPAY ==
--- NOTE | 2024-01-16 16:45 | CT_ITS ---
WS: [id number] CT RIGHT KNEE, NONCONTRAST [facility] TECHNIQUE: Noncontrast CT of the RIGHT knee to include the RIGHT hip and ankle. CLINICAL INFORMATION: M17.11 - Unilateral primary osteoarthritis, right knee COMPARISON: None. DLP: 904.[address] scans at [facility] use at least one of these dose optimization techniques: automated e xposure control; mA and/or kV adjustment per patient size (includes targeted exams where dose is matc hed to clinical indication); or iterative reconstruction. FINDINGS: Advanced tricompartment arthritis RIGHT knee. Hypertrophic patella. Hypertrophic changes along the juan int line. Small suprapatellar effusion. Vascular calcification. Lobulated popliteal cyst. Sigmoid div erticulosis. CT/CT knee RT ALMAS [id number] IMPRESSION: Images obtained for preoperative purposes.
== END 2024-01-16 16:25 | disposition home or self-care (01) ==
LOC: RAD 16:24
PROVIDERS: PCP Family Medicine; Visit Provider Student in an Organized Health Care Education/Training Program
DX: M17.11 Unilateral primary osteoarthritis, right knee (principal); M25.561 Pain in right knee; G89.29 Other chronic pain
CPT/HCPCS: 73700

== ENCOUNTER 2024-01-30 09:54 | Observation (INO) | payer OTHER, SELFPAY ==
[2024-01-30] VITALS (21 sets, daily range): BP systolic 99–175; BP diastolic 55–93; PULSE 70–92; RESP 14–23; TEMP 36.4–36.8; O2SAT 89–95; BMI 30.3
[2024-01-30 06:55] LABS: Basophils % 0.4 %; Eosinophils # 0.2 10^3/uL (0.0-0.8); Eosinophils % 2.1 %; Hematocrit 41.2 % (36-47); Lymphocytes # 1.9 10^3/uL (0.8-4.8); Lymphocytes % 26.5 %; Mean Corpuscular Volume 91.2 fl (85-98); Mean Platelet Volume 8.7 fL (7.4-10.4); Monocytes # 0.8 10^3/uL (0.2-0.9); Monocytes % 10.6 %; Neutrophils % 60.1 %; Nucleated Red Blood Cells % 0 %; Platelet Count 272 10^3/cmm (157-399); Red Blood Count 4.52 10^6/uL (3.85-5.65); Red Cell Distribution Width 13.3 % (12.1-15.1); White Blood Count 7.16 10^3/uL (3.29-11.43)
[2024-01-30] MEDS: ketorolac 30 mg/mL INJ IVP (06:56)
[2024-01-30] MEDS: lactated ringers 500 ML IV (06:56)
[2024-01-30] MEDS: scopolamine 1.5 Patch 1 PATCH TRANSDERMA (06:59)
--- NOTE | 2024-01-30 07:06 | W.PM.OPSFHP ---
Same Day Surgery H&P Indication for Procedure/HPI DATE OF PROCEDURE: January 30, 2024 CHIEF COMPLAINT/INDICATIONFOR SURGICAL PROCEDURE: Right knee degenerative joint disease PREOP DIAGNOSIS: Right knee degenerative joint disease PLANNED PROCEDURE: Operation Date: 01/30/24 07:50 Proposed Procedures p Kevon Robot Total Knee Arthroplasty(Right) - Isra Robertson DO Medications/Allergies* Home Medications Medication Instructions Recorded Confirmed Type acetaminophen 650 mg 650 mg PO Q8H 01/29/24 01/30/24 History tablet,extended release (Tylenol Arthritis Pain) biotin 5,000 mcg-lutein 10 mg 5,000 tab PO DAILY 01/29/24 01/30/24 History tablet (Biotin Plus) estradiol 2 mg tablet 2 mg PO DAILY 01/29/24 01/30/24 History Allergies/Adverse Reactions Allergy/AdvReac Type Severity Reaction Status Date / Time Sulfa (Sulfonamide Allergy Mild RASH Verified 12/21/23 12:33 Antibiotics) Current Medications: Generic Name Dose Route Start Last Admin Trade Name Freq PRN Reason Stop Dose Admin Lactated Ringer's 500 mls @ 500 mls/hr 01/30/24 06:17 01/30/24 06:56 Lactated Ringers IV 01/30/24 07:16 500 mls/hr .Q1H ONE Administration Pertinent History/Comorbid Conditions* Medical History (Updated 01/07/24 @ 21:31 by Isra Robertson DO) Chondromalacia, left knee Colon polyps Hypertension Hemorrhoid Postmenopausal HRT (hormone replacement therapy) Osteoarthritis Surgical History (Updated 05/31/20 @ 07:38 by Arash Sommers MD) Status post colonoscopy with polypectomy (05/31/20) sigmoid polyp, diverticulosis and hemorrhoids, repeat in 5 years H/O arthroscopy of knee (~2018) right meniscal tear repair H/O dilation and curettage History of total abdominal hysterectomy and bilateral salpingo-oophorectomy (~1991) Family History (Updated 05/06/20 @ 16:57 by Shyann Bro APN, SHAUN) Skin cancer Father Dementia Mother Cancer Family/Other 3 Aunts with Colon cancer Hypertension Parkinson disease Mother Thyroid disease Father Mother Social History Smoking and tobacco/nicotine status: never used tobacco/nicotine Alcohol intake: never Substance/Drug Use: never Additional social history: Tobacco use: Denies Alcohol use: Denies Drug use: Denies Adopted: No Caregiver/support person: No Lives independently: Yes Household members: spouse Housing: House Marital status: Number of children: 1 Number of grandchildren: 2 Highest education level completed: Associate Degree: Occupational, Technical, Vocational Program service: No Current occupational status: employed Current occupation: [employer] Pertinent Exam Findings alert, oriented x 3, operative site marked and procedure specific exam findings Please refer to detailed orthopedic examination on 12/21/2023: Right Knee Exam: ROM 5 to greater than 110 degrees Patellar crepitus with ROM Medial joint line tenderness to palpation Lateral joint line tenderness to palpation Mild joint effusion Negative Betty's Negative Aldo's 5-10 degrees of Valgus malalignment, correctable on exam Stable Varus and Valgus stress Gross motor sensory intact Recommendations Surgery/Procedure today Other Plans: Plan to proceed to the OR today for right total knee arthroplasty?Kevon robotic assisted. Patient understands the ins and outs procedure risk benefits complication alternatives of surgery and through shared decision-making elects proceed with surgical intervention. All questions answered. Coding Level of Care Code Acute Code for Inderjit Rosenthal
[2024-01-30 07:15] LABS: Anion Gap 15.6 (5-19); Blood Urea Nitrogen 16 mg/dL (8-23); Calcium 9.2 mg/dL (8.5-10.5); Carbon Dioxide 26 mmol/L (22-29); Chloride 103 mmol/L (98-107); Creatinine Clr Calc Pharmacy 134.9835; Glomerular Filtration Rate 160.7 mL/min (90-130); Glucose 102 mg/dL (65-115); Osmolality Calculated 293 mOsm/kg (285-295); Potassium 3.6 mmol/L (3.5-5.1); Sodium 141 mmol/L (136-145)
--- NOTE | 2024-01-30 07:25 | P.ANESASSM_ITS ---
Pre-Anesthetic Assessment Height/Weight: Height 1.57 m Weight 75.296 kg Temp Pulse Resp BP Pulse Ox O2 Del Method 97.6 F 84 18 175/93 95 Room Air 01/30/24 06:45 01/30/24 06:45 01/30/24 06:45 01/30/24 06:45 01/30/24 06:45 01/30/24 06:45 Preop Diagnosis: Right knee degenerative joint disease Operation Date: 01/30/24 07:50 Proposed Procedures p Kevon Robot Total Knee Arthroplasty(Right) - Isra Robertson DO Familial anesthetic complications: none Was Beta Evaristo taken within 24 hours: N/A Was Clonidine taken within 24 hours: N/A Last intake: Intake Last Liquid Date 01/29/24 Last Liquid Time 18:00 Last Solid Date 01/29/24 Last Solid Time 18:00 Social No alcohol and No tobacco Exam alert, oriented x 3, clear to auscultation bilaterally and regular rate & rhythm Airway Submandibular: within normal limits Cervical ROM: within normal limits Mallampati: Class II Dentition: full CV/HEM Hypertension Musc/skel Osteoarthritis/DJD Anesthetic Plan ASA status: 2 Anesthesia: Regional (specify below) (SAB) Medications/Allergies Home Medications Medication Instructions Recorded Confirmed Last Taken Type celecoxib 200 mg capsule (Celebrex) 200 mg PO BID #180 caps 11/14/23 01/30/24 2 Weeks Ago Rx ~01/16/24 hydrocortisone 2.5 % topical cream 1 applic WI Q8H PRN hemorrhoids 11/14/23 01/30/24 1 Month Ago Rx with perineal applicator #30 grams ~12/31/23 (Anusol-HC) hydrochlorothiazide 12.5 mg tablet 12.5 mg PO DAILY #90 tabs 12/17/23 01/30/24 01/29/24 Rx acetaminophen 650 mg 650 mg PO Q8H 01/29/24 01/30/24 01/29/24 History tablet,extended release (Tylenol Arthritis Pain) biotin 5,000 mcg-lutein 10 mg 5,000 tab PO DAILY 01/29/24 01/30/24 01/29/24 History tablet (Biotin Plus) estradiol 2 mg tablet 2 mg PO DAILY 01/29/24 01/30/24 01/25/24 History Allergies Allergy/AdvReac Type Severity Reaction Status Date / Time Sulfa (Sulfonamide Allergy Mild RASH Verified 12/21/23 12:33 Antibiotics) [facility] [place] Anesthesia Medical History Chondromalacia, left knee Colon polyps Hypertension Hemorrhoid Postmenopausal HRT (hormone replacement therapy) Osteoarthritis Surgical History Status post colonoscopy with polypectomy (05/31/20) sigmoid polyp, diverticulosis and hemorrhoids, repeat in 5 years H/O arthroscopy of knee (~2018) right meniscal tear repair H/O dilation and curettage History of total abdominal hysterectomy and bilateral salpingo-oophorectomy (~1991) Family History Family/Other Cancer 3 Aunts with Colon cancer Father Thyroid disease Skin cancer Mother Thyroid disease Parkinson disease Dementia Other Hypertension Social History Smoking and tobacco/nicotine status: never used tobacco/nicotine Alcohol intake: never Substance/Drug Use: never Additional social history: Tobacco use: Denies Alcohol use: Denies Drug use: Denies Adopted: No Caregiver/support person: No Lives independently: Yes Household members: spouse Housing: House Marital status: Number of children: 1 Number of grandchildren: 2 Highest education level completed: Associate Degree: Occupational, Technical, Vocational Program service: No Current occupational status: employed Current occupation: [employer] Female Reproductive History Spontaneous abortions: No Data Anesthesia 01/30/24 06:40 01/30/24 06:40 Short CBC 01/30/24 Range/Units 06:40 WBC 7.16 (3.29-11.43) 10^3/uL Hgb 14.00 (11.27-16.99) g/dL Hct 41.2 (36-47) % MCV 91.2 (85-98) fl Plt Count 272 (157-399) 10^3/cmm Neut % (Auto) 60.1 % Neut # (Auto) 4.30 (1.8-7.7) 10^3/uL BMP 01/30/24 06:40 Sodium 141 Potassium 3.6 Chloride 103 Carbon Dioxide 26 BUN 16 Creatinine 0.4 L Glucose 102 Calcium 9.2 Cardiac Studies: 2 No Data to Display
[2024-01-30] MEDS: acetaminophen 1,000 MG/100 ML PIGGYBACK 400 MG IV ×3 (07:26→20:10)
[2024-01-30] MEDS: sodium chloride 0.9% 1,000 ML 30 ML IV (07:28)
[2024-01-30 07:29] LABS: Add Urine Microscopic? NO; Charge for UA Resulting for Rev
[2024-01-30] MEDS: ceFAZolin 2,000 MG in sodium chloride 0.9% (plus) 50 ML 100 MG IV ×3 (07:49→22:05)
[2024-01-30 07:58] LABS: Bilirubin Urine Neg (Negative); Blood Urine Neg (Negative); Glucose Urine UA Norm (Normal); Ketones Urine Negative (Negative); Leukocyte Esterase Urine Negative (Negative); Nitrate Urine Negative (Negative); Protein Urine Neg (Negative); Specific Gravity, Urine 1.025 (1.005-1.030); Urine Appearance Clear (CLEAR); Urine Color Yellow (Yellow); Urobilinogen Urine Neg (Negative); pH Urine 5 (5-7)
[2024-01-30] MEDS: tranexamic acid 1,000 MG/100 ML PREMIX 600 MG IV ×2 (08:15→18:28)
[2024-01-30] MEDS: vancomycin 1,000 MG SDV 1000 MG XX (09:08)
[2024-01-30] MEDS: ROPivacaine 0.2% Premix 100 mL 200 MG INTRA-ARTI (09:09)
[2024-01-30] MEDS: ketorolac 30 mg/mL INJ XX (09:09)
[2024-01-30] MEDS: tranexamic acid 1,000 mg/10mL SDV 1000 MG XX (09:09)
[2024-01-30] MEDS: EPINEPHrine 1 mg/mL INJ XX (09:09)
--- NOTE | 2024-01-30 10:28 | XR_ITS ---
WS: [id number] KNEE RIGHT TECHNIQUE: 2 views of the right knee CLINICAL INFORMATION: Status post right TKA FINDINGS: Postoperative changes RIGHT TKA. Patellar resurfacing. Soft tissue edema with expected normal postope rative suprapatellar effusion and postoperative changes in the soft tissues XR/XR knee RT 1-2V [id number] IMPRESSION: Normal for postoperative purposes Kellgren-Russ Classification: NA
--- NOTE | 2024-01-30 10:30 | W.PM.BPON ---
Date of Procedure: [January 30, 2024] Surgeon: [Dr. Robertson DO] Nursing Informatics Analyst(s): [Jovanni Robertson PA-C] Procedure(s) performed: [Right knee total arthroplasty with Kevon robotic assist] Findings of the procedure(s): [Right knee degenerative joint disease] Estimated blood loss: [25 ml] Specimen(s) removed: [n/a] Post-operative diagnosis: [Right Knee degenerative joint disease]
--- NOTE | 2024-01-30 10:40 | PM.PACU ---
PACU note Narrative: Patient is a 63-year-old female that just underwent a right total knee arthroplasty. pt transferred to PACU in stable condition. Dressing is dry. pt is awake and alert. pt can wiggle toes and plantarflex and dorsiflex foot. pt able to perform straight leg raise, Femoral nerve intact. Distal pulses are palpable toes are warm and well-perfused. Cap refill is normal and under 2 seconds. Unable to assess sensation to foot due to residual anesthetic. Pain is controlled. Exam: awake Disposition: admitted
--- NOTE | 2024-01-30 11:06 | P.OP_ITS ---
Operative Report Date of procedure: January 30, 2024 Surgeon: Isra Robertson DO Pickler Helper: Jovanni Robertson PA-C: PA was necessary for assistance in this case with leg positioning retraction and protection of neurovascular structures as well as assistance in implantation wound closure and dressing application. Procedure: Preoperative diagnosis: Right knee degenerative joint disease Post-op diagnosis: Same Procedure done: Right total knee arthroplasty, cemented?robotic assisted Kevon Implants: Tabitha triathlon size 4 femur CR cemented?Right Tabitha triathlon size? 4 tibia universal baseplate cemented [place] triathlon symmetric patella size 31 mm Ben Wheeler triathlon polyethylene 10mm Surgeon: Isra Robertson DO Estimated blood?loss: 25 mL Tourniquet 59minutes IV fluids: 1000 mL Urine output: 100 mL Complications: None Condition: stable Disposition: floor Brief History: Patient is a 63-year-old female with with chronic?Right knee degenerative joint disease.? Patient has been worked up in the outpatient setting in the orthopedic office at this point time through shared decision making given? [id number] arthritis as well as failed conservative treatment, and pt would?like to proceed with a?Right total knee arthroplasty.? Through shared decision making elected to proceed with surgical intervention for?Right total knee arthroplasty.? We talked about continued conservative treatment and surgical intervention as far as the risk benefits complications alternatives surgical and nonsurgical treatment options.? At this point time understanding patient risks with surgery agrees to proceed with surgical intervention.? Once again? risk with surgery include but are not?limited to make it better make it worse blood clot, heart attack, stroke, on the table, infection, injury to nerves or vessels, persistent pain, arthrofibrosis, implant failure.? Understanding these risks patient agrees to proceed with surgical intervention consent was obtained in the office.? All questions answered. Procedure: Patient was seen and evaluated in the preoperative holding area.? Consent was reviewed and signed with patient with plan for?Right total knee arthroplasty.? All questions answered.? Correct extremity marked.? Patient seen and evaluated by the anesthesia department and once cleared for surgery was taken back to the operative suite.? Patient was placed into a supine position on the OR table.? All bony prominences were well-padded.? Patient was appropriately secured to the bed.? Patient underwent anesthesia per the anesthesia department.? Patient received spinal anesthesia and? Pina catheter was placed.? A nonsterile tourniquet was applied to the?Right thigh.? At this point in time a final timeout performed.? Patient received appropriate preoperative antibiotics and TXA. Next the?Right?lower extremity was then prepped and draped in standard orthopedic fashion. Esmarch tourniquet was used exsanguinate the?Right?lower extremity.? Tourniquet was insufflated to 250 mmHg. A standard anterior incision was made over midline of the knee.? Sharp scalpel excision through skin and subcutaneous tissue full-thickness skin flaps were made.? Fascia was elevated off of the extensor retinaculum was stable with medial parapatellar arthrotomy was then made.? The performed standard sequential releases..? Immediately on entry into the joint patient was found to have severe eburnated bone and tricompartmental arthritic changes noted.? With significant osteophyte formation.? Next the the patella was then stuffed and the knee was th en flexed.?? Kirti was placed superiorly around the anterior aspect of the femur this was freed of synovium and I subsequently then placed by 2 femur pins to establish my femur arrays for the Kevon robot.? These were then placed bicortically and? femur array was then appropriately secured with appropriate visualization.? Next attention was turned towards the tibial rays.? These were then drilled sequentially bicortically in parallel fashion and intraincisional.? I then placed my guide as well as my tibial array on in place.? This was appropriately secured and had excellent visualization with the Kevon robot.? Next the tibial checkpoint as well as femur checkpoint were then placed.? At this point time I then subsequently established my head center as well as my medial?lateral malleoli as well as my checkpoints.? Next utilizing standard Kevon technology I then mapped out the appropriate points and confirmation points around the femur as well as the tibia in standard fashion.? Once this was then done I then removed all osteophytes in preparation for dynamic testing.? All osteophytes were removed as well as I removed the ACL and the PCL was excised due to its significant tearing and degeneration noted.? At this point time the knee was brought into full extension and we performed our standard evaluation of our gap balancing stressing his?ligaments and extension as well as flexion a ppropriate adjustments were made to have appropriate gap balancing in both flexion and extension.? This plan for final counts.? We get a preoperative plan evaluating our implants which was a size 4 femur and a size 4 tibia.? Next we brought in the Kevon robot and sequentially made our femur cuts.? All excess bony cuts were then removed.? Finally we made our tibial cut.? Once this was done a standard PCL retractor was then placed into this position I excised the medial and?lateral meniscus.? The tibial cut was then subsequently removed all excess bony debris was removed.? I then utilized a?lamina terminal worker and remove the posterior osteophytes.? At this point time sized the tibia and confirmed this was a size 4.? I utilized our blunt probe to establish rotation of tibial implant.? Once this was done I then placed my tibia size 4 trial in appropriate position and then subsequently placed tibial pins to hold this into place placed a size 10 mm poly as well as a size 4 femur which was appropriately impacted in place knee was then subsequently brought into extension. Trials were then assessed,? this was stable with varus valgus stress in extension as well as had symmetrical translation when brought into flexion demonstrating symmetrical gaps. I had excellent balance gaps in flexion and extension with varus and valgus stresses.? At this point I was satisfied with these implants these were then verified and opened on the back table size 4 tibia, size4 femur,? size 10 mm polythickness.? We did confirm appropriate gap balancing and stresses as well as alignment utilizing? Kevon and were satisfied with this plan.? ?At this point time with my trials in place I then towel clip the patella everted this made appropriate measurements subsequently utilizing freehand technique performed by patellar resurfacing this was confirmed to be appropriate resection and subsequently sized to be a 31 mm symmetric.? My drill peg guides were then clamped and appropriate position and appropriate position in the patella for appropriate tracking and parallel with the joint.? Pegs were drilled trial implant was placed and the knee was then subsequently ranged and found to have excellent patellar tracking.? Femur pegs were then drilled.? Satisfied with our tibial placement rotation I then utilized the keel punch and prepped the tibia.? At this point time all of our trial implants were removed.? All checkpoints as well as guidepins and arrays were removed and appropriate counts made.? The wound bed? was thoroughly irrigated and dried and prepped for cementation.? Cement was mixed on the back table.? Once cement was ready this was then covered onto the tibia and the tibial baseplate was then impacted and all excess cement was removed.? Next the polyethylene was then impacted into place on the tibial baseplate.? Next cement was placed onto the femur as well as under the femur implants and impacted in to place and all excess cement was extruded and removed.? Knee was taken into full extension? to clear all excess cement was removed.? Warm saline was placed over the joint.? I then towel clip patella and dried for cementation. cemented the patella into place.? This was all clamped and the cement was allowed to cure.? Thorough irrigation performed with pulse?lavage.? I then placed my periarticular injection while the cement was curing.? Once cured the knee was taken through range of motion and had excellent stability and gaps were balanced in flexion and extension.? Tourniquet was then deflated. hemostasis satisfactory with electrocautery.? Vancomycin powder placed in the wound bed for infection prophylaxis. next I then subsequently closed the capsule with Ethibond suture as well as a running strata fix suture.? Knee was then taken through range of motion 30 times.? Next the skin was then closed in?layered fashion of running stratifix sutures of deep and subcutenous tissue and skin.? ?closed in flexion and Prineo glue was then placed over the incision this allowed to cure.? Incision was covered with angelique dressing, with ABDs soft roll and Hans wrap.? Patient was then awakened from anesthesia and taken to PACU in stable condition. Disposition: Patient taken to PACU in stable condition will be admitted to the floor for pain control PT/OT weight-bear as tolerated?Right?lower extremity dressing changes as needed, DVT prophylaxis. Pain control. Patient will receive appropriate postoperative antibiotics. patient will be seen today by the internal medicine team for medical management.? Patient will follow up with the office in 2 weeks.? Patient understands agrees with current plan.? All questions answered.
[2024-01-30] MEDS: ondansetron 2 mg/ML SDV 2 mL 4 MG IVP (11:51)
[2024-01-30] MEDS: lactated ringers 1,000 ML 100 ML IV ×2 (12:01→22:00)
[2024-01-30] MEDS: oxyCODONE 5 mg IR Tab/Cap PO ×2 (12:24→20:10)
[2024-01-30] MEDS: HYDROmorphone 1 mg/mL INJ 1 mL 0.5 MG IVP ×3 (12:36→21:59)
--- NOTE | 2024-01-30 14:34 | PM.CONSULT ---
Providers/Reason For Consult Attending Physician: Isra Robertson DO Primary Care Provider: Matthieu Ocasio DO History of Present Illness History of Present Illness Meche Milner is a 63 year old female Medications/Allergies Home Medications Medication Instructions Recorded Confirmed Last Taken Type celecoxib 200 mg capsule (Celebrex) 200 mg PO BID #180 caps 11/14/23 01/30/24 2 Weeks Ago Rx ~01/16/24 hydrocortisone 2.5 % topical cream 1 applic [place] Q8H PRN hemorrhoids 11/14/23 01/30/24 1 Month Ago Rx with perineal applicator #30 grams ~12/31/23 (Anusol-HC) hydrochlorothiazide 12.5 mg tablet 12.5 mg PO DAILY #90 tabs 12/17/23 01/30/24 01/29/24 Rx acetaminophen 650 mg 650 mg PO Q8H 01/29/24 01/30/24 01/29/24 History tablet,extended release (Tylenol Arthritis Pain) biotin 5,000 mcg-lutein 10 mg 5,000 tab PO DAILY 01/29/24 01/30/24 01/29/24 History tablet (Biotin Plus) estradiol 2 mg tablet 2 mg PO DAILY 01/29/24 01/30/24 01/25/24 History Allergies Allergy/AdvReac Type Severity Reaction Status Date / Time Sulfa (Sulfonamide Allergy Mild RASH Verified 12/21/23 12:33 Antibiotics) Current Medications Generic Name Dose Route Start Last Admin Trade Name Freq PRN Reason Stop Dose Admin Chlorhexidine Gluconate 30 ml 01/30/24 13:00 01/30/24 13:22 Chlorhexidine Gluconate 0.12% Btl 473 Ml MUCOUS MEM Not Given QID SHANIQUA Hydromorphone HCl 0.5 mg 01/30/24 11:01/30/24 12:36 Hydromorphone 1 Mg/Ml Inj 1 Ml IVP 0.5 mg Q4H PRN Administration BREAKTHROUGH PAIN Lactated Ringer's 1,000 mls @ 100 mls/hr 01/30/24 11:01/30/24 12:01 Lactated Ringers IV 100 mls/hr .Q10H SHANIQUA Administration Acetaminophen 1,000 mg in 100 mls @ 400 mls/hr 01/30/24 11:01/30/24 12:10 Acetaminophen IV 01/31/24 03:43 Infused Q8H SHANIQUA Infusion Ondansetron HCl 4 mg 01/30/24 11:29 01/30/24 11:51 Ondansetron 2 Mg/Ml Sdv 2 Ml IVP 4 mg Q6H PRN Administration NAUSEA AND VOMITING Oxycodone HCl 5 mg 01/30/24 11:29 01/30/24 12:24 Oxycodone 5 Mg Ir Tab/Cap PO 5 mg Q4H PRN Administration MODERATE PAIN PFSH Acute PFSH: Medical History Chondromalacia, left knee Colon polyps Hypertension Hemorrhoid Postmenopausal HRT (hormone replacement therapy) Osteoarthritis Surgical History Status post colonoscopy with polypectomy (05/31/20) sigmoid polyp, diverticulosis and hemorrhoids, repeat in 5 years H/O arthroscopy of knee (~2018) right meniscal tear repair H/O dilation and curettage History of total abdominal hysterectomy and bilateral salpingo-oophorectomy (~1991) Family History Family/Other Cancer 3 Aunts with Colon cancer Father Thyroid disease Skin cancer Mother Thyroid disease Parkinson disease Dementia Other Hypertension Social History Smoking and tobacco/nicotine status: never used tobacco/nicotine Alcohol intake: never Substance/Drug Use: never Additional social history: Tobacco use: Denies Alcohol use: Denies Drug use: Denies Adopted: No Caregiver/support person: No Lives independently: Yes Household members: spouse Housing: House Marital status: Number of children: 1 Number of grandchildren: 2 Highest education level completed: Associate Degree: Occupational, Technical, Vocational Program service: No Current occupational status: employed Current occupation: [employer] Female Reproductive History: Spontaneous abortions: No Vitals/I&O/Wt Last Vital Signs Temp 97.9 F 01/30/24 14:00 Pulse 81 01/30/24 14:00 Resp 16 01/30/24 14:00 BP 115/75 01/30/24 14:00 Pulse Ox 91 01/30/24 14:00 O2 Del Method Room Air 01/30/24 14:00 01/29/24 01/30/24 01/30/24 22:59 06:59 14:59 Intake Total 2140 / 2140 Output Total 125 / 125 Balance 2014 Weight last 48 hrs Weight 75.296 kg Weight 75.296 kg Data 01/30/24 06:40 01/30/24 06:40 Coding Level of Care Code Acute Code for Chg Fwd
--- NOTE | 2024-01-30 14:53 | ANE.PACU2 ---
Inpatient post-anesthesia follow up: Airway intact: Yes Vital signs: Temperature 97.9 F Pulse Rate 81 Respiratory Rate 16 Blood Pressure 115/75 Pulse Oximetry 91 Oxygen Delivery Me thod Room Air Oxygen Flow Rate Fraction of Inspir ed Oxygen Hydration adequate: Yes Nausea and vomiting: No Pain level: 1 Mental status: Baseline
[2024-01-30] MEDS: ketorolac 30 mg/mL INJ 15 MG IVP (15:20)
[2024-01-30] MEDS: metoclopramide 5 mg/mL SDV 2 mL IVP (15:42)
[2024-01-30] MEDS: iron polysaccharide complex 150 mg Capsule PO (17:53)
[2024-01-30] MEDS: chlorhexidine gluconate 0.12% Btl 473 mL 30 ML MUCOUS MEM ×2 (17:53→20:11)
[2024-01-30] MEDS: sennosides-docusate Tablet 2 TAB PO (17:53)
[2024-01-30] MEDS: mupirocin oint 22 gm 1 APPLIC NASAL (17:53)
[2024-01-30] MEDS: docusate sodium 100 mg Capsule PO (17:53)
[2024-01-30] MEDS: calcium carb-vit d 600mg/400unit 1 Tablet 1 EACH PO (17:53)
[2024-01-31] VITALS (7 sets, daily range): BP systolic 117–170; BP diastolic 71–80; PULSE 65–78; RESP 16–18; TEMP 36.7; O2SAT 90–94
[2024-01-31] MEDS: HYDROmorphone 1 mg/mL INJ 1 mL 0.5 MG IVP (03:37)
[2024-01-31] MEDS: acetaminophen 1,000 MG/100 ML PIGGYBACK 400 MG IV (03:38)
[2024-01-31] MEDS: ceFAZolin 2,000 MG in sodium chloride 0.9% (plus) 50 ML 100 MG IV (06:17)
[2024-01-31] MEDS: oxyCODONE 5 mg IR Tab/Cap PO ×2 (06:18→10:50)
[2024-01-31] MEDS: ketorolac 30 mg/mL INJ 15 MG IVP (06:18)
[2024-01-31 06:44] LABS: Basophils % 0.2 %; Eosinophils # 0.1 10^3/uL (0.0-0.8); Eosinophils % 0.8 %; Hematocrit 36.6 % (36-47); Lymphocytes % 20.9 %; Mean Corpuscular HGB Conc 32.8 g/dL (30-55); Mean Corpuscular Hemoglobin 31.2 pg (27-33); Mean Corpuscular Volume 95.1 fl (85-98); Mean Platelet Volume 8.7 fL (7.4-10.4); Monocytes # 0.9 10^3/uL (0.2-0.9); Monocytes % 9.3 %; Neutrophils % 68.6 %; Nucleated Red Blood Cells % 0 %; Platelet Count 247 10^3/cmm (157-399); Red Blood Count 3.85 10^6/uL (3.85-5.65); Red Cell Distribution Width 13.7 % (12.1-15.1); White Blood Count 9.33 10^3/uL (3.29-11.43)
[2024-01-31 07:03] LABS: Anion Gap 10.9 (5-19); Blood Urea Nitrogen 12 mg/dL (8-23); Calcium 8.1 mg/dL (8.5-10.5); Carbon Dioxide 29 mmol/L (22-29); Chloride 104 mmol/L (98-107); Creatinine Clr Calc Pharmacy 114.9543; Glomerular Filtration Rate 124.2 mL/min (90-130); Glucose 106 mg/dL (65-115); Osmolality Calculated 290 mOsm/kg (285-295); Potassium 3.9 mmol/L (3.5-5.1); Sodium 140 mmol/L (136-145)
[2024-01-31] MEDS: docusate sodium 100 mg Capsule PO (07:58)
[2024-01-31] MEDS: apixaban 5 mg Tablet 2.5 MG PO (07:58)
[2024-01-31] MEDS: calcium carb-vit d 600mg/400unit 1 Tablet 1 EACH PO (07:59)
[2024-01-31] MEDS: sennosides-docusate Tablet 2 TAB PO (07:59)
[2024-01-31] MEDS: hydroCHLOROthiazide 25 mg Tablet 12.5 MG PO (07:59)
[2024-01-31] MEDS: lactated ringers 1,000 ML 100 ML IV (07:59)
[2024-01-31] MEDS: iron polysaccharide complex 150 mg Capsule PO (07:59)
[2024-01-31] MEDS: multivitamin therapeutic Tablet 1 TAB PO (07:59)
[2024-01-31] MEDS: mupirocin oint 22 gm 1 APPLIC NASAL (08:00)
[2024-01-31] MEDS: chlorhexidine gluconate 0.12% Btl 473 mL 30 ML MUCOUS MEM (08:00)
--- NOTE | 2024-01-31 12:23 | P.DS_ITS ---
Discharge Providers Date of Admission: 01/30/24 09:54 Date of Discharge: January 31, 2024 Attending Provider at Admission: Isra Robertson DO Attending Provider at Discharge: Isra Robertson DO Primary Care Provider: Matthieu Ocasio DO Reason for Visit Reason for Visit: M17.11, M17.12 Brief History: Status post right total knee arthroplasty Hospital Course Hospital Course Patient presented to the preoperative holding area with plan for right total knee arthroplasty after patient has been worked up in the outpatient setting for failed conservative treatment of [right] knee degenerative joint disease. Once cleared by anesthesia for surgery patient subsequently was taken back to the operative suite underwent anesthesia per anesthesia department and then subsequently underwent a [right] total knee arthroplasty. Procedure was performed without any complications patient was taken to PACU in stable condition patient recovered well in PACU and then was admitted to the floor postoperatively. Patient received appropriate PT/OT, postoperative antibiotics, postoperative TXA, pain control, postoperative DVT prophylaxis. Elevation and ice. Patient encouraged for knee range of motion allowed weightbearing as tolerated to the operative lower extremity. Dressing was changed as needed, labs were monitored daily. Patient recovered well postoperatively and worked well and progressed well with therapy. It was determined on postoperative day [1 ] the patient was stable for discharge from an orthopedic standpoint. Patient was comfortable with discharge and plan was discharged home. Patient received appropriate discharge instructions as well as pain medication and DVT prophylaxis postoperatively. Given appropriate instructions for dressing management. Patient will follow-up with Dr. Robertson/orthopedics in the office in 2 weeks. All questions answered. Understand if there is any issues questions or concerns and contact the office. Physical Exam Narrative: Examination of the right knee dressings on in place is clean dry and intact, calf soft nontender, compartments are soft and compressible. Patient is able wiggle toes plantarflex and dorsiflex ankle sensations intact light touch distally toes warm well-perfused normal postoperative swelling and pain about the right knee Discharge Data Studies Completed and Pending Completed Studies During Hospitalization Category Date Time Status XR knee RT 1-2V 26080 Routine Exams 01/30/24 10:28 Completed Pending at discharge Category Date Time Status Basic Metabolic Panel AM LABS Lab 02/01/24 04:00 Ordered Basic Metabolic Panel AM LABS Lab 02/02/24 04:00 Ordered Complete Blood Count w/Auto AM LABS Lab 02/01/24 04:00 Ordered Complete Blood Count w/Auto AM LABS Lab 02/02/24 04:00 Ordered Radiology Impressions Knee X-Ray 01/30/24 10:28 IMPRESSION: Normal for postoperative purposes Kellgren-Russ Classification: NA Laboratory Results WBC 9.33 10^3/uL (3.29-11.43) 01/31/24 06:14 RBC 3.85 10^6/uL (3.85-5.65) 01/31/24 06:14 Hgb 12.00 g/dL (11.27-16.99) 01/31/24 06:14 Hct 36.6 % (36-47) 01/31/24 06:14 MCV 95.1 fl (85-98) 01/31/24 06:14 MCH 31.2 pg (27-33) 01/31/24 06:14 MCHC 32.8 g/dL (30-55) 01/31/24 06:14 RDW 13.7 % (12.1-15.1) 01/31/24 06:14 Plt Count 247 10^3/cmm (157-399) 01/31/24 06:14 MPV 8.7 fL (7.4-10.4) 01/31/24 06:14 Neut % (Auto) 68.6 % 01/31/24 06:14 Lymph % (Auto) 20.9 % 01/31/24 06:14 Caswell % (Auto) 9.3 % 01/31/24 06:14 Eos % (Auto) 0.8 % 01/31/24 06:14 Baso % (Auto) 0.2 % 01/31/24 06:14 Neut # (Auto) 6.40 10^3/uL (1.8-7.7) 01/31/24 06:14 Lymph # (Auto) 2.0 10^3/uL (0.8-4.8) 01/31/24 06:14 Caswell # (Auto) 0.9 10^3/uL (0.2-0.9) 01/31/24 06:14 Eos # (Auto) 0.1 10^3/uL (0.0-0.8) 01/31/24 06:14 Baso # (Auto) 0.0 10^3/uL (0.0-0.1) 01/31/24 06:14 Nucleated RBC % (auto) 0 % 01/31/24 06:14 Nucleated RBCs # 0.0 /100WBC 01/31/24 06:14 Sodium 140 mmol/L (136-145) 01/31/24 06:14 Potassium 3.9 mmol/L (3.5-5.1) 01/31/24 06:14 Chloride 104 mmol/L (98-107) 01/31/24 06:14 Carbon Dioxide 29 mmol/L (22-29) 01/31/24 06:14 Anion Gap 10.9 (5-19) 01/31/24 06:14 BUN 12 mg/dL (8-23) 01/31/24 06:14 Creatinine 0.5 mg/dL (0.5-0.9) 01/31/24 06:14 GFR Calculation 124.2 mL/min (90-130) 01/31/24 06:14 Glucose 106 mg/dL (65-115) 01/31/24 06:14 Calculated Osmolality 290 mOsm/kg (285-295) 01/31/24 06:14 Calcium 8.1 mg/dL (8.5-10.5) L 01/31/24 06:14 Urine Color Yellow (Yellow) 01/30/24 07:20 Urine Appearance Clear (CLEAR) 01/30/24 07:20 Urine pH 5 (5-7) 01/30/24 07:20 Ur Specific Bazine 1.025 (1.005-1.030) 01/30/24 07:20 Urine Protein Neg (Negative) 01/30/24 07:20 Urine Glucose (UA) Norm (Normal) 01/30/24 07:20 Urine Ketones Negative (Negative) 01/30/24 07:20 Urine Blood Neg (Negative) 01/30/24 07:20 Urine Nitrate Negative (Negative) 01/30/24 07:20 Urine Bilirubin Neg (Negative) 01/30/24 07:20 Urine Urobilinogen Neg mg/dL (Negative) 01/30/24 07:20 Ur Leukocyte Esterase Negative (Negative) 01/30/24 07:20 Blood Type A Positive 01/30/24 06:40 Rho(D) Type Rh positive 01/30/24 06:40 Antibody Screen Negative 01/30/24 06:40 Vitals Last Vital Signs Temp 98.0 F 01/31/24 07:11 Pulse 68 01/31/24 11:28 Resp 16 01/31/24 11:28 BP 170/80 01/31/24 11:28 Pulse Ox 90 01/31/24 11:28 O2 Del Method Room Air 01/31/24 11:28 O2 Flow Rate 2 01/31/24 07:11 Discharge Plan Discharge Patient Disposition: Home Condition: Stable Prescriptions: New Eliquis 2.5 mg tablet 2.5 mg PO BID 14 Days Qty: 28 0RF oxycodone 5 mg tablet 5 mg PO Q6H PRN (Reason: pain postop) 7 Days Qty: 28 0RF Continued hydrocortisone [Anusol-HC] 2.5 % cream with perineal applicator 1 applic [place] Q8H PRN (Reason: hemorrhoids) Qty: 30 3RF hydrochlorothiazide 12.5 mg tablet 12.5 mg PO DAILY Qty: 90 3RF acetaminophen [Tylenol Arthritis Pain] 650 mg Tablet Extended Release 650 mg PO Q8H Biotin Plus 5,000 mcg- 10 mg Tablet 5,000 tab PO DAILY Held celecoxib [Celebrex] 200 mg capsule 200 mg PO BID Qty: 180 3RF Hold Instructions: Resume on 02/14/24. estradiol 2 mg tablet 2 mg PO DAILY Hold Instructions: Resume on 02/14/24. Rx Instructions: TAKE ONE TABLET BY MOUTH EVERY DAY Discharge Orders: Discharge Order (Routine); Ordered 01/31/24 Ordered By: Isra Robertson Other Ambulatory Orders: DME: Walker (Order) Location: None Selected Ordered By: Isra Robertson Physical Therapy Eval and Treat Outpatient (Order) Timeframe: 3 Days Facility: [facility] - Location: Physical Therapy Ordered By: Isra Robertson [place] [facility] [place] [facility] [place] [facility] [place] Matthieu Ocasio DO [Primary Care Provider] - (We have notified your physician's clinic of the need for a follow-up appointment to be scheduled. If you have not heard from them within the next 2 business days, please call them directly. ) Isra Robertson DO [Physician] - 02/12/24 8:00 am Discharge Diet: Regular Discharge Activity: Limit activity as instructed and Use walker/crutches as instructed Patient Instructions: Oxycodone, Rapid Release (By mouth), Ondansetron (By mouth), Apixaban (By mouth) Activity Restrictions/Additional Instructions: Orthopedic discharge instructions: Remove Hans wrap after 3 days Keep incisions clean dry and intact, leave Angelique bandage dressings on in place for 7 days after that, May remove bandage, And may rinse incisions with warm soapy water pat dry and redress with a dry dressing. Okay to shower with angelique dressing on would recommend utilizing Saran wrap and make sure to disconnect battery pack Patient may weight-bear as tolerate to the operative extremity Utilize crutches as needed Encourage knee range of motion Ice and elevate as needed for pain and swelling Take pain medication as prescribed Take antinausea medication as needed The prescribed Eliquis twice daily for the next 14 days for blood clot prevention Hold Celebrex for 2 weeks while on blood thinner as well as hold estradiol for 2 weeks while taking blood thinner to prevent blood clots May supplement for pain with Tylenol 1000 mg 3 times daily [id number] as needed, No take over 3000 mg a day No baths or soaks Follow-up in the orthopedic office in 2 weeks Contact the office for any questions or concerns Discharge Attestations Time Spent in Discharge Care*: less than 30 min Quality Metrics Clinical Quality Measures [ No reported AMI, CVA or VTE this stay] Coding Level of Care Code Acute Code for Brayang Ariadna
== END 2024-01-31 14:29 | disposition home or self-care (01) ==
LOC: MEDSURG 09:55
PROVIDERS: Physician Assistant; Admitting Provider Student in an Organized Health Care Education/Training Program; PCP Family Medicine; Visit Provider Student in an Organized Health Care Education/Training Program
PROC: 8E0Y0CZ Robotic Assisted Procedure of Lower Extremity, Open Approach (ICD-10-PCS; CPT 27447; principal; 2024-01-30 07:50)
DX: M17.11 Unilateral primary osteoarthritis, right knee (principal); I10 Essential (primary) hypertension; M19.90 Unspecified osteoarthritis, unspecified site
CPT/HCPCS: 20985; 27447; 36415; 51702; 73560; 80048; 81003; 85025; 86850; 86900; 97116; 97161; 97165; 97530; C1776; G0378; J0131; J0171; J0690; J1170; J1885; J2405; J2704; J2765; J2795; J3370; J7030; J7120

== ENCOUNTER 2024-02-04 13:13 | Outpatient (RCR) | payer OTHER, SELFPAY | END 2024-02-15 23:59 | disposition home or self-care (01) | LOC: SPT 13:13 | PROVIDERS: Visit Provider Student in an Organized Health Care Education/Training Program | DX: M17.11 Unilateral primary osteoarthritis, right knee (principal) | CPT/HCPCS: 97110; 97116; 97161; 97530 ==

== ENCOUNTER → 2024-02-12 08:05 | Outpatient (BNVA) | payer OTHER, SELFPAY | PROVIDERS: Visit Provider Student in an Organized Health Care Education/Training Program | DX: Z96.651 Presence of right artificial knee joint (principal) | CPT/HCPCS: 73560; 73565 ==

== ENCOUNTER 2024-02-16 06:00 | Outpatient (RCR) | payer OTHER, SELFPAY | END 2024-03-05 23:59 | disposition home or self-care (01) | LOC: SPT 06:00 | PROVIDERS: Visit Provider Student in an Organized Health Care Education/Training Program | DX: M17.11 Unilateral primary osteoarthritis, right knee (principal) | CPT/HCPCS: 97110 ==

== ENCOUNTER → 2024-03-25 06:42 | Outpatient (BNVA) | payer OTHER, SELFPAY | PROVIDERS: Visit Provider Student in an Organized Health Care Education/Training Program | DX: Z96.651 Presence of right artificial knee joint (principal) | CPT/HCPCS: 73560; 73565 ==

== ENCOUNTER → 2024-06-05 08:19 | Outpatient (BNVA) | payer OTHER, SELFPAY | PROVIDERS: Visit Provider Student in an Organized Health Care Education/Training Program | DX: M25.562 Pain in left knee (principal); M17.12 Unilateral primary osteoarthritis, left knee; M25.561 Pain in right knee; G89.29 Other chronic pain | CPT/HCPCS: 73560; 73565 ==

== ENCOUNTER 2024-06-18 08:18 | Outpatient (CLI) | payer OTHER, SELFPAY ==
[2024-06-18 08:38] LABS: Basophils % 0.6 %; Eosinophils # 0.2 10^3/uL (0.0-0.8); Eosinophils % 3.9 %; Lymphocytes # 1.7 10^3/uL (0.8-4.8); Lymphocytes % 32.3 %; Mean Corpuscular HGB Conc 34.4 g/dL (30-55); Mean Corpuscular Hemoglobin 31.2 pg (27-33); Mean Corpuscular Volume 90.7 fl (85-98); Monocytes # 0.6 10^3/uL (0.2-0.9); Monocytes % 10.8 %; Neutrophils # 2.81 10^3/uL (1.8-7.7); Nucleated Red Blood Cells % 0 %; Platelet Count 246 10^3/cmm (157-399); Red Blood Count 4.52 10^6/uL (3.85-5.65); White Blood Count 5.39 10^3/uL (3.29-11.43)
[2024-06-18 08:40] LABS: Bilirubin Urine Negative (Negative); Blood Urine Negative (Negative); Glucose Urine UA Negative (Normal); Ketones Urine Negative (Negative); Leukocyte Esterase Urine Negative (Negative); Nitrate Urine Negative (Negative); Protein Urine Negative (Negative); Specific Gravity, Urine 1.007 (1.005-1.030); Urine Appearance Cloudy (CLEAR); Urine Color Yellow (Yellow); Urobilinogen Urine 0.2 mg/dL (Negative); pH Urine 6.5 (5-7)
--- NOTE | 2024-06-18 09:00 | CT_ITS ---
WS: [id number] CT LEFT knee, noncontrast HISTORY: LEFT TOTAL KNEE ARTHROPLASTY TECHNIQUE: Protocol for [facility] total knee replacement has been obtained. This includes axial imaging th rough the LEFT hip, LEFT knee and LEFT ankle. DLP: 897.54 mGy.cm COMPARISON: 01/16/2024 Normal position of the femoral heads. No destructive bone lesions. Mild sigmoid diverticulosis. LEFT knee: Mild to moderate narrowing of all 3 compartments was marginal osteophytes. Small suprapate llar effusion. Small Rose's cyst. Negative LEFT ankle. CT/CT knee LT [facility] [id number] IMPRESSION: CT imaging provided for [facility] robotic total knee replacement.
[2024-06-18 09:06] LABS: Add Urine Microscopic? YES; UA Manual Slide Review YES; UA Slide Review UA Slide Review Perf
[2024-06-18 09:08] LABS: RBC Urine RARE /hpf (0-2)
[2024-06-18 09:09] LABS: Add Urine Culture? No; Other Crystals Urine STARCH /hpf; Squamous Epithelial Cell Urine 0-4 /hpf (0-5)
[2024-06-18 09:21] LABS: Alanine Aminotransferase 7 U/L (0-33); Alkaline Phosphatase 53 U/L (35-105); Anion Gap 12.8 (5-19); Aspartate Amino Transferase 8 U/L (0-32); Blood Urea Nitrogen 12 mg/dL (8-23); Calcium 8.8 mg/dL (8.5-10.5); Carbon Dioxide 28 mmol/L (22-29); Chloride 103 mmol/L (98-107); Globulin 2.6 g/dL (1.3-4.6); Glomerular Filtration Rate 160.7 mL/min (90-130); Glucose 92 mg/dL (65-115); Osmolality Calculated 289 mOsm/kg (285-295); Potassium 3.8 mmol/L (3.5-5.1); Sodium 140 mmol/L (136-145); Total Bilirubin 0.3 mg/dL (0.15-1.2); Total Protein 6.6 g/dL (6.6-8.7)
== END 2024-06-18 08:19 | disposition home or self-care (01) ==
LOC: RAD 08:19
PROVIDERS: PCP Family Medicine; Visit Provider Student in an Organized Health Care Education/Training Program
DX: Z01.818 Encounter for other preprocedural examination (principal); M17.12 Unilateral primary osteoarthritis, left knee; M71.22 Synovial cyst of popliteal space [Baker], left knee
CPT/HCPCS: 73700; 80053; 81001; 85025

== ENCOUNTER 2024-07-02 10:48 | Observation (INO) | payer OTHER, SELFPAY ==
[2024-07-02] VITALS (22 sets, daily range): BP systolic 117–160; BP diastolic 67–100; PULSE 69–95; RESP 12–20; TEMP 36.2–36.6; O2SAT 93–99; BMI 30.3
[2024-07-02] MEDS: ketorolac 30 mg/mL INJ IVP (06:51)
[2024-07-02] MEDS: lactated ringers 500 ML IV (06:52)
[2024-07-02] MEDS: acetaminophen 1,000 MG/100 ML PIGGYBACK 400 MG IV ×3 (06:53→20:22)
[2024-07-02] MEDS: scopolamine 1.5 Patch 1 PATCH TRANSDERMA (06:59)
--- NOTE | 2024-07-02 07:09 | W.PM.OPSUD ---
Surgery/Procedure H&P Update DATE OF PROCEDURE: July 02, 2024 DATE H&P PERFORMED: 06/05/24 H&P UPDATE INFORMATION: I have reviewed H&P completed within last 30 days, I have examined patient prior to procedure and No changes to prior documentation CHANGES TO PREVIOUS DOCUMENTATION: Labs reviewed no evidence of UTI. This point time patient's right to proceed with surgical intervention she is done well with her right side like to proceed with the other today it has been since October since her last injection the left knee. Patient understands agrees with current plan. All questions answered. Will proceed with left total knee arthroplasty?Kevon robotic assisted today. PREOP DIAGNOSIS: Left knee degenerative joint disease PRIMARY INDICATION FOR PROCEDURE: Left knee degenerative joint disease PLANNED PROCEDURE: Operation Date: 07/02/24 08:05 Proposed Procedures p Kevon Robot Total Knee Arthroplasty(Left) - Isra Robertson DO
[2024-07-02] MEDS: sodium chloride 0.9% 1,000 ML 30 ML IV (07:27)
--- NOTE | 2024-07-02 07:29 | ANES.PREANE2 ---
Pre-Anesthetic Assessment Height/Weight: Height 5 ft 2 in Weight 166 lb Temp Pulse Resp BP Pulse Ox O2 Del Method 97.1 F L 76 18 160/100 97 Room Air 07/02/24 06:37 07/02/24 06:37 07/02/24 06:37 07/02/24 06:37 07/02/24 06:37 07/02/24 06:37 Preop Diagnosis: Left knee degenerative joint disease Operation Date: 07/02/24 08:05 Proposed Procedures p Kevon Robot Total Knee Arthroplasty(Left) - Isra Robertson, DO Was Beta Evaristo taken within 24 hours: N/A Was Clonidine taken within 24 hours: N/A Last intake: Intake Last Liquid Date 07/01/24 Last Liquid Time 20:00 Last Solid Date 07/01/24 Last Solid Time 18:30 Social No alcohol and No tobacco Exam alert, oriented x 3, clear to auscultation bilaterally and regular rate & rhythm Airway Submandibular: within normal limits Cervical ROM: within normal limits Mallampati: Class II Dentition: full Anesthetic Plan ASA status: 2 Anesthesia: MAC and Regional (specify below) Other: Patient has had an issue with peripheral nerve block, adductor canal, following surgery. States that she had pain and tingling in her thigh for months NPO since yesterday evening Patient had prior knee arthroplasty done earlier this year under spinal anesthesia without issues History of hypertension on hydrochlorothiazide Denies any pulmonary issues Labs 06/18/2024 reviewed and acceptable for procedure Plan for spinal anesthetic Medications/Allergies Home Medications Medication Instructions Recorded Confirmed Last Taken Type celecoxib 200 mg capsule (Celebrex) 200 mg PO BID #180 caps 11/14/23 07/02/24 06/17/24 Rx hydrocortisone 2.5 % topical cream 1 applic [place] Q8H PRN hemorrhoids 11/14/23 07/02/24 1 Month Ago Rx with perineal applicator #30 grams ~12/31/23 (Anusol-HC) hydrochlorothiazide 12.5 mg tablet 12.5 mg PO DAILY #90 tabs 12/17/23 07/02/24 07/01/24 Rx acetaminophen 650 mg 650 mg PO Q8H 01/29/24 07/02/24 07/01/24 History tablet,extended release (Tylenol Arthritis Pain) biotin 5,000 mcg-lutein 10 mg 5,000 tab PO DAILY 01/29/24 07/02/24 06/17/24 History tablet (Biotin Plus) estradiol 2 mg tablet 2 mg PO DAILY 01/29/24 07/02/24 06/17/24 History tramadol 50 mg tablet 50 mg PO Q6H PRN pain 7 days #28 02/12/24 07/02/24 Unknown Rx tabs calcium 600 mg (as carbonate)-vit 1 tab PO DAILY 06/05/24 07/02/24 06/17/24 History D3 20 mcg (800 unit) chewable tablet (Caltrate plus D) Allergies Allergy/AdvReac Type Severity Reaction Status Date / Time Sulfa (Sulfonamide Allergy Mild RASH Verified 07/02/24 06:35 Antibiotics) Current Medications Generic Name Dose Route Start Last Admin Trade Name Freq PRN Reason Stop Dose Admin Sodium Chloride 1,000 mls @ 30 mls/hr 07/02/24 06:45 07/02/24 07:27 Sodium Chloride 0.9% IV 07/03/24 06:44 30 mls/hr .Q24H SHANIQUA Administration Lactated Ringer's 500 mls @ 500 mls/hr 07/02/24 06:33 07/02/24 07:25 Lactated Ringers IV 07/02/24 07:32 Infused .Q1H ONE Infusion PFSH Anesthesia Medical History Chondromalacia, left knee Colon polyps Hypertension Hemorrhoid Postmenopausal HRT (hormone replacement therapy) Osteoarthritis Surgical History Status post colonoscopy with polypectomy (05/31/20) sigmoid polyp, diverticulosis and hemorrhoids, repeat in 5 years H/O arthroscopy of knee (~2018) right meniscal tear repair H/O dilation and curettage History of total abdominal hysterectomy and bilateral salpingo-oophorectomy (~1991) Family History Family/Other Cancer 3 Aunts with Colon cancer Father Thyroid disease Skin cancer Mother Thyroid disease Parkinson disease Dementia Other Hypertension Social History Smoking and tobacco/nicotine status: never used tobacco/nicotine Alcohol intake: never Substance/Drug Use: never Additional social history: Tobacco use: Denies Alcohol use: Denies Drug use: Denies Adopted: No Caregiver/support person: No Lives independently: Yes Household members: spouse Housing: House Marital status: Number of children: 1 Number of grandchildren: 2 Highest education level completed: Associate Degree: Occupational, Technical, Vocational Program service: No Current occupational status: employed Current occupation: [employer] [facility] [place] Female Reproductive History Spontaneous abortions: No Data Anesthesia Cardiac Studies: No Data to Display
[2024-07-02] MEDS: ceFAZolin 2,000 MG in sodium chloride 0.9% (plus) 50 ML 100 MG IV ×3 (07:45→23:25)
[2024-07-02] MEDS: tranexamic acid 1,000 mg/10mL SDV 1000 MG IV (08:15)
[2024-07-02] MEDS: ketorolac 30 mg/mL INJ XX (08:32)
[2024-07-02] MEDS: EPINEPHrine 1 mg/mL INJ XX (08:32)
[2024-07-02] MEDS: ROPivacaine 0.2% Premix 100 mL 200 MG INTRA-ARTI (08:32)
[2024-07-02] MEDS: tranexamic acid 1,000 mg/10mL SDV 1000 MG XX (08:32)
[2024-07-02] MEDS: vancomycin 1,000 MG SDV 1000 MG XX (08:35)
[2024-07-02 09:10] LABS: Anion Gap 15.9 (5-19); Blood Urea Nitrogen 20 mg/dL (8-23); Calcium 9.1 mg/dL (8.5-10.5); Carbon Dioxide 26 mmol/L (22-29); Chloride 104 mmol/L (98-107); Glomerular Filtration Rate 100.6 mL/min (90-130); Glucose 100 mg/dL (65-115); Osmolality Calculated 297 mOsm/kg (285-295); Potassium 3.9 mmol/L (3.5-5.1); Sodium 142 mmol/L (136-145)
[2024-07-02 09:25] LABS: Basophils % 0.7 %; Eosinophils # 0.2 10^3/uL (0.0-0.8); Eosinophils % 3.8 %; Hematocrit 44.3 % (36-47); Lymphocytes # 2.2 10^3/uL (0.8-4.8); Lymphocytes % 39.2 %; Mean Corpuscular HGB Conc 33.4 g/dL (30-55); Mean Corpuscular Hemoglobin 30.6 pg (27-33); Mean Corpuscular Volume 91.5 fl (85-98); Mean Platelet Volume 9.5 fL (7.4-10.4); Monocytes # 0.6 10^3/uL (0.2-0.9); Monocytes % 10.8 %; Neutrophils # 2.52 10^3/uL (1.8-7.7); Neutrophils % 45.3 %; Nucleated Red Blood Cells % 0 %; Platelet Count 286 10^3/cmm (157-399); Red Blood Count 4.84 10^6/uL (3.85-5.65); White Blood Count 5.56 10^3/uL (3.29-11.43)
--- NOTE | 2024-07-02 10:08 | P.OP_ITS ---
Operative Report Date of procedure: July 02, 2024 Surgeon: Isra Robertson DO Surgical Appliances Salesperson: Jovanni Robertson PA-C: PA was necessary for assistance in this case with leg positioning retraction and protection of neurovascular structures as well as assistance in implantation wound closure and dressing application. Procedure: Preoperative diagnosis: Left knee degenerative joint disease Post-op diagnosis: Same Procedure done: Left total knee arthroplasty, cemented?robotic assisted Kevon Implants: [place] triathlon size 4 femur CR cemented?left [place] triathlon size? 3 tibia universal baseplate cemented [place] triathlon symmetric patella size 31 mm Tabitha triathlon polyethylene 9mm Surgeon: Isra Robertson DO Estimated blood?loss: 20 mL Tourniquet 71mins IV fluids: 1500 mL Urine output: 200 mL Complications: None Condition: stable Disposition: floor Brief History: Patient is a 63-year-old female with with chronic?left knee degenerative joint disease.? Patient has been worked up in the outpatient setting in the orthopedic office at this point time through shared decision making given? [id number] arthritis as well as failed conservative treatment, and pt would?like to proceed with a?left total knee arthroplasty.? Through shared decision making elected to proceed with surgical intervention for?left total knee arthroplasty.? We talked about continued conservative treatment and surgical intervention as far as the risk benefits complications alternatives surgical and nonsurgical treatment options.? At this point time understanding patient risks with surgery he agrees to proceed with surgical intervention.? Once again? risk with surgery include but are not?limited to make it better make it worse blood clot, heart attack, stroke, on the table, infection, injury to nerves or vessels, persistent pain, arthrofibrosis, implant failure.? Understanding these risks patient agrees to proceed with surgical intervention consent was obtained in the office.? All questions answered. Procedure: Patient was seen and evaluated in the preoperative holding area.? Consent was reviewed and signed with patient with plan for?left total knee arthroplasty.? All questions answered.? Correct extremity marked.? Patient seen and evaluated by the anesthesia department and once cleared for surgery was taken back to the operative suite.? Patient was placed into a supine position on the OR table.? All bony prominences were well-padded.? Patient was appropriately secured to the bed.? Patient underwent anesthesia per the anesthesia department.? Patient received spinal anesthesia and? Pina catheter was placed.? A nonsterile tourniquet was applied to the?left thigh.? At this point in time a final timeout performed.? Patient received appropriate preoperative antibiotics and TXA. Next the?left?lower extremity was then prepped and draped in standard orthopedic fashion. Esmarch tourniquet was used exsanguinate the?left?lower extremity.? To urniquet was insufflated to 250 mmHg. A standard anterior incision was made over midline of the knee.? Sharp scalpel excision through skin and subcutaneous tissue full-thickness skin flaps were made.? Fascia was elevated off of the extensor retinaculum was stable with medial parapatellar arthrotomy was then made.? The performed standard sequential releases..? Immediately on entry into the joint patient was found to have severe eburnated bone and tricompartmental arthritic changes noted.? With significant osteophyte formation.? Next the the patella was then stuffed and the knee was then flexed.?? Kirti was placed superiorly around the anterior aspect of the femur this was freed of synovium and I subsequently then placed by 2 femur pins to establish my femur arrays for the Kevon robot.? These were then placed bicortically and? femur array was then appropriately secured with appropriate visualization.? Next attention was turned towards the tibial rays.? These were then drilled sequenti ally bicortically in parallel fashion and intraincisional.? I then placed my guide as well as my tibial array on in place.? This was appropriately secured and had excellent visualization with the Kevon robot.? Next the tibial checkpoint as well as femur checkpoint were then placed.? At this point time I then subsequently established my head center as well as my medial?lateral malleoli as well as my checkpoints.? Next utilizing standard Kevon technology I then mapped out the appropriate points and confirmation points around the femur as well as the tibia in standard fashion.? Once this was then done I then removed all osteophytes in preparation for dynamic testing.? All osteophytes were removed as well as I removed the ACL and the PCL was excised due to its significant tearing and degeneration noted.? At this point time the knee was brought into full extension and we performed our standard evaluation of our gap balancing stressing his?ligaments and extension as well as flexion appropriate adjustments were made to have appropriate gap balancing in both flexion and extension.? This plan for final counts.? We get a preoperative plan evaluating our implants which was a size 4 femur and a size 3 tibia.? Next we brought in the Kevon robot and sequentially made our femur cuts.? All excess bony cuts were then removed.? Finally we made our tibial cut.? Once this was done a standard PCL retractor was then placed into this position I excised the medial and?lateral meniscus.? The tibial cut was then subsequently removed all excess bony debris was removed.? I then utilized a?lamina pail tester and remove the posterior osteophytes.? At this point time sized the tibia and confirmed this was a size 3.? I utilized our blunt probe to establish rotation of tibial implant.? Once this was done I then placed my tibia size 3 trial in appropriate position and then subsequently placed tibial pins to hold this into place placed a size 9 mm poly as well as a size 4 femur which was appropriately impacted in place knee was then subsequently brought into extension. Trials were then assessed,? this was stable with varus valgus stress in extension as well as had symmetrical translation when brought into flexion demonstrating symmetrical gaps. I had excellent balance gaps in flexion and extension with varus and valgus stresses.? At this point I was satisfied with these implants these were then verified and opened on the back table size 3 tibia, size 4 femur,? size 9 mm polythickness.? We did confirm appropriate gap balancing and stresses as well as alignment utilizing? Kevon and were satisfied with this plan.? ?At this point time with my trials in place I then towel clip the patella everted this made appropriate measurements subsequently utilizing freehand technique performed by patellar resurfacing this was confirmed to be appropriate resection and subsequently sized to be a 31 mm symmetric.? My drill peg guides were then clamped and appropriate position and appropriate position in the patella for appropriate tracking and parallel with the joint.? Pegs were drilled trial implant was placed and the knee was then subsequently ranged and found to have excellent patellar tracking.? Femur pegs were then drilled.? All checkpoints as well as guidepins and arrays were removed and appropriate counts made. Satisfied with our tibial placement rotation I then utilized the keel punch and prepped the tibia.? At this point time all of our trial implants were removed.? The wound bed? was thoroughly irrigated and dried and prepped for cementation.? Cement was mixed on the back table.? Once cement was ready this was then covered onto the tibia and the tibial baseplate was then impacted and all excess cement was removed.? Next the polyethylene was then impacted into place on the tibial baseplate.? Next cement was placed onto the femur as well as under the femur implants and impacted in to place and all excess cement was extruded and removed.? Knee was taken into full extension? to clear all excess cement was removed.? Warm saline was placed over the joint.? I then towel clip patella and dried for cementation. cemented the patella into place.? This was all clamped and the cement was allowed to cure.? Thorough irrigation performed with pulse?lavage.? I then placed my periarticular injection while the cement was curing.? Once cured the knee was taken through range of motion and had excellent stability and gaps were balanced in flexion and extension.? Tourniquet was then deflated. hemostasis satisfactory with electrocautery.? Vancomycin powder was placed in wound bed for antibiotic prophylaxis. Next I then subsequently closed the capsule with Ethibond suture as well as a running strata fix suture.? Knee was then taken through range of motion 30 times.? Next the ski n was then closed in?layered fashion of running stratifix sutures of deep and subcutenous tissue and skin.? ?closed in flexion and Prineo glue was then placed over the incision this allowed to cure.? Incision was covered with EPI, with ABDs soft roll and Hans wrap.? Patient was then awakened from anesthesia and taken to PACU in stable condition. Disposition: Patient taken to PACU in stable condition will be admitted to the floor for pain control PT/OT weight-bear as tolerated?left?lower extremity dressing changes as needed, DVT prophylaxis. Pain control. Patient will receive appropriate postoperative antibiotics. ? Patient will follow up with the office in 2 weeks.? Patient understands agrees with current plan.? All questions answered.
--- NOTE | 2024-07-02 10:11 | XRR_ITS ---
PROCEDURE INFORMATION: Exam: XR Left Knee Exam date and time: 07/02/2024 10:30 AM Age: 63 years old Clinical indication: Device placement; Joint replacement hardware; Prior surgery; Surgery date: Post-operative (0-2 days); Surgery type: L tka; Additional info: Post L tka, do in pacu TECHNIQUE: Imaging protocol: Radiologic exam of the left knee. Views: 3 views. COMPARISON: CT knee LT [facility] [id number] 06/18/2024 8:40 AM FINDINGS: Bones/joints: The patient is status post left total knee arthroplasty with patellar resurfacing. No fracture or dislocation. Expected postoperative soft tissue changes noted. Soft tissues: See Bones/joints finding. XR/XR knee LT 3V* [id number] IMPRESSION: Status post left total knee arthroplasty, without evidence of hardware related complication.
--- NOTE | 2024-07-02 10:22 | W.PM.BPON ---
Date of Procedure: [July 02, 2024] Surgeon: [Dr. Robertson DO] Crab Butcher(s): [Jovanni Robertson PA-C] Procedure(s) performed: [Left total knee arthroplasty with Kevon robotic assist] Findings of the procedure(s): [Left knee degenerative joint disease. Procedure went well and as planned.] Estimated blood loss: [20 mL] Specimen(s) removed: [N/A] Post-operative diagnosis: [Left knee degenerative joint disease]
--- NOTE | 2024-07-02 10:23 | P.PCN_ITS ---
PACU note Narrative: Patient is a 63-year-old female just over the left total knee arthroplasty. Pt transferred to PACU in stable condition. Dressing is dry. pt is awake and alert. pt can wiggle toes. Distal pulses are palpable toes are warm and well- perfused. Cap refill is normal and under 2 seconds. Unable to perform any further assessment on motor and sensory of left leg due to residual anesthetic. Pain is controlled. Exam: awake Disposition: admitted
--- NOTE | 2024-07-02 11:02 | ANE.PACU2 ---
Inpatient post-anesthesia follow up: Airway intact: Yes Vital signs: Temperature 97.4 F Pulse Rate 94 Respiratory Rate 18 Blood Pressure 134/80 Pulse Oximetry 97 Oxygen Delivery Me thod Room Air Oxygen Flow Rate 2 Fraction of Inspir ed Oxygen Hydration adequate: Yes Nausea and vomiting: No Pain level: 1 Mental status: Baseline
[2024-07-02] MEDS: lactated ringers 1,000 ML 100 ML IV ×2 (11:58→20:22)
[2024-07-02] MEDS: chlorhexidine gluconate 0.12% Btl 473 mL 30 ML MUCOUS MEM ×3 (12:53→20:22)
[2024-07-02] MEDS: ketorolac 30 mg/mL INJ 15 MG IVP ×2 (12:58→22:01)
[2024-07-02] MEDS: oxyCODONE 5 mg IR Tab/Cap PO ×2 (14:18→20:21)
[2024-07-02] MEDS: HYDROmorphone 1 mg/mL INJ 1 mL 0.5 MG IVP ×2 (15:43→22:00)
[2024-07-02] MEDS: tranexamic acid 1,000 MG/100 ML PREMIX 600 MG IV (16:25)
[2024-07-02] MEDS: mupirocin oint 22 gm 1 APPLIC NASAL (17:48)
[2024-07-02] MEDS: docusate sodium 100 mg Capsule PO (17:49)
[2024-07-02] MEDS: sennosides-docusate Tablet 2 TAB PO (17:49)
[2024-07-02] MEDS: iron polysaccharide complex 150 mg Capsule PO (17:49)
[2024-07-02] MEDS: calcium carb-vit d 600mg/400unit 1 Tablet 1 EACH PO (17:49)
[2024-07-03] VITALS (8 sets, daily range): BP systolic 107–117; BP diastolic 62–65; PULSE 72–81; RESP 16–92; TEMP 35.8–36.7; O2SAT 90–93
[2024-07-03] MEDS: HYDROmorphone 1 mg/mL INJ 1 mL 0.5 MG IVP ×2 (04:04→09:31)
[2024-07-03] MEDS: acetaminophen 1,000 MG/100 ML PIGGYBACK 400 MG IV (04:04)
[2024-07-03 05:35] LABS: Basophils % 0.1 %; Hematocrit 36.5 % (36-47); Lymphocytes # 1.3 10^3/uL (0.8-4.8); Lymphocytes % 9.7 %; Mean Corpuscular HGB Conc 32.9 g/dL (30-55); Mean Corpuscular Hemoglobin 30.4 pg (27-33); Mean Corpuscular Volume 92.4 fl (85-98); Monocytes # 0.9 10^3/uL (0.2-0.9); Monocytes % 6.6 %; Neutrophils # 10.86 10^3/uL (1.8-7.7); Neutrophils % 83.1 %; Nucleated Red Blood Cells % 0 %; Platelet Count 240 10^3/cmm (157-399); Red Blood Count 3.95 10^6/uL (3.85-5.65); Red Cell Distribution Width 12.9 % (12.1-15.1); White Blood Count 13.06 10^3/uL (3.29-11.43)
[2024-07-03 05:51] LABS: Blood Urea Nitrogen 12 mg/dL (8-23); Calcium 8.2 mg/dL (8.5-10.5); Carbon Dioxide 24 mmol/L (22-29); Chloride 105 mmol/L (98-107); Creatinine Clr Calc Pharmacy 147.2191; Glomerular Filtration Rate 124.2 mL/min (90-130); Glucose 117 mg/dL (65-115); Osmolality Calculated 289 mOsm/kg (285-295); Sodium 139 mmol/L (136-145)
[2024-07-03] MEDS: lactated ringers 1,000 ML 100 ML IV (06:11)
[2024-07-03] MEDS: oxyCODONE 5 mg IR Tab/Cap PO (06:12)
[2024-07-03] MEDS: ketorolac 30 mg/mL INJ 15 MG IVP (06:13)
[2024-07-03] MEDS: ceFAZolin 2,000 MG in sodium chloride 0.9% (plus) 50 ML 100 MG IV (07:17)
[2024-07-03] MEDS: ondansetron 2 mg/ML SDV 2 mL 4 MG IVP (08:17)
[2024-07-03] MEDS: calcium carb-vit d 600mg/400unit 1 Tablet 1 EACH PO (08:18)
[2024-07-03] MEDS: iron polysaccharide complex 150 mg Capsule PO (08:18)
[2024-07-03] MEDS: sennosides-docusate Tablet 2 TAB PO (08:18)
[2024-07-03] MEDS: multivitamin therapeutic Tablet 1 TAB PO (08:18)
[2024-07-03] MEDS: docusate sodium 100 mg Capsule PO (08:18)
[2024-07-03] MEDS: chlorhexidine gluconate 0.12% Btl 473 mL 30 ML MUCOUS MEM (08:18)
[2024-07-03] MEDS: apixaban 5 mg Tablet 2.5 MG PO (08:18)
[2024-07-03] MEDS: mupirocin oint 22 gm 1 APPLIC NASAL (08:19)
--- NOTE | 2024-07-03 12:43 | P.DS_ITS ---
Discharge Providers Date of Admission: 07/02/24 10:48 Date of Discharge: July 03, 2024 Attending Provider at Admission: Isra Robertson DO Attending Provider at Discharge: Isra Robertson DO Primary Care Provider: Matthieu Ocasoi DO Reason for Visit Reason for Visit: M65.331 Brief History: Status post left total knee arthroplasty Hospital Course Hospital Course Patient presented to the preoperative holding area with plan for left total knee arthroplasty after patient has been worked up in the outpatient setting for failed conservative treatment of left knee degenerative joint disease. Once cleared by anesthesia for surgery patient subsequently was taken back to the op erative suite underwent anesthesia per anesthesia department and then subsequently underwent a [left] total knee arthroplasty. Procedure was performed without any complications patient was taken to PACU in stable condition patient recovered well in PACU and then was admitted to the floor postoperatively. Patient received appropriate PT/OT, postoperative antibiotics, postoperative TXA, pain control, postoperative DVT prophylaxis. Elevation and ice. Patient encouraged for knee range of motion allowed weightbearing as tolerated to the operative lower extremity. Dressing was changed as needed, labs were monitored daily. Patient recovered well postoperatively and worked well and progressed well with therapy. It was determined on postoperative day [ 1] the patient was stable for discharge from an orthopedic standpoint. Patient was comfortable with discharge and plan was discharged home. Patient received appropriate discharge instructions as well as pain medication and DVT prophy laxis postoperatively. Given appropriate instructions for dressing management. Patient will follow-up with Dr. Robertson/orthopedics in the office in 2 weeks. All questions answered. Understand if there is any issues questions or concerns and contact the office. Physical Exam Narrative: Examination of the left knee demonstrates dressings on in place is clean dry and intact no evidence of saturation distal pulses are palpable calf soft nontender compartment soft compressible normal postoperative swelling and tenderness palpation about the left knee. She is able to wiggle toes plantarflex and dorsiflex ankle sensations intact light touch distally. Urinary Catheter Management: Pina: Cath Placed During This Visit: yes, but has since been removed by the nurse Reason for Continuing Indwelling Catheter: Decision to DC Catheter Date Urinary Catheter Removed: 07/03/24 Time Urinary Catheter Discontinued: 07:32 Discharge Data Studies Completed and Pending Completed Studies During Hospitalization Category Date Time Status XR knee LT 3V* [id number] Routine Exams 07/02/24 10:11 Completed Pending at discharge Category Date Time Status Basic Metabolic Panel AM LABS Lab 07/04/24 04:00 Ordered Basic Metabolic Panel AM LABS Lab 07/05/24 04:00 Ordered Complete Blood Count w/Auto AM LABS Lab 07/04/24 04:00 Ordered Complete Blood Count w/Auto AM LABS Lab 07/05/24 04:00 Ordered Radiology Impressions Knee X-Ray 07/02/24 10:11 IMPRESSION: Status post left total knee arthroplasty, without evidence of hardware related complication. Laboratory Results WBC 13.06 10^3/uL (3.29-11.43) H 07/03/24 04:48 RBC 3.95 10^6/uL (3.85-5.65) 07/03/24 04:48 Hgb 12.00 g/dL (11.27-16.99) 07/03/24 04:48 Hct 36.5 % (36-47) 07/03/24 04:48 MCV 92.4 fl (85-98) 07/03/24 04:48 MCH 30.4 pg (27-33) 07/03/24 04:48 MCHC 32.9 g/dL (30-55) 07/03/24 04:48 RDW 12.9 % (12.1-15.1) 07/03/24 04:48 Plt Count 240 10^3/cmm (157-399) 07/03/24 04:48 MPV 9.0 fL (7.4-10.4) 07/03/24 04:48 Neut % (Auto) 83.1 % 07/03/24 04:48 Lymph % (Auto) 9.7 % 07/03/24 04:48 [place] % (Auto) 6.6 % 07/03/24 04:48 Eos % (Auto) 0.0 % 07/03/24 04:48 Baso % (Auto) 0.1 % 07/03/24 04:48 Neut # (Auto) 10.86 10^3/uL (1.8-7.7) H 07/03/24 04:48 Lymph # (Auto) 1.3 10^3/uL (0.8-4.8) 07/03/24 04:48 [place] # (Auto) 0.9 10^3/uL (0.2-0.9) 07/03/24 04:48 Eos # (Auto) 0.0 10^3/uL (0.0-0.8) 07/03/24 04:48 Baso # (Auto) 0.0 10^3/uL (0.0-0.1) 07/03/24 04:48 Nucleated RBC % (auto) 0 % 07/03/24 04:48 Nucleated RBCs # 0.0 /100WBC 07/03/24 04:48 Sodium 139 mmol/L (136-145) 07/03/24 04:48 Potassium 4.0 mmol/L (3.5-5.1) 07/03/24 04:48 Chloride 105 mmol/L (98-107) 07/03/24 04:48 Carbon Dioxide 24 mmol/L (22-29) 07/03/24 04:48 Anion Gap 14.0 (5-19) 07/03/24 04:48 BUN 12 mg/dL (8-23) 07/03/24 04:48 Creatinine 0.5 mg/dL (0.5-0.9) 07/03/24 04:48 GFR Calculation 124.2 mL/min (90-130) 07/03/24 04:48 Glucose 117 mg/dL (65-115) H 07/03/24 04:48 Calculated Osmolality 289 mOsm/kg (285-295) 07/03/24 04:48 Calcium 8.2 mg/dL (8.5-10.5) L 07/03/24 04:48 Blood Type A Positive 07/02/24 06:51 Rho(D) Type Rh positive 07/02/24 06:51 Antibody Screen Negative 07/02/24 06:51 Vitals Last Vital Signs Temp 97.8 F 07/03/24 11:51 Pulse 73 07/03/24 11:51 Resp 92 H 07/03/24 11:51 BP 114/64 07/03/24 11:51 Pulse Ox 92 07/03/24 11:51 O2 Del Method Room Air 07/02/24 16:59 O2 Flow Rate 2 07/02/24 11:10 Discharge Plan Discharge Patient Disposition: Home Condition: Stable Prescriptions: New Eliquis 2.5 mg tablet 2.5 mg PO BID 14 Days Qty: 28 0RF Continued hydrocortisone [Anusol-HC] 2.5 % cream with perineal applicator 1 applic IA Q8H PRN (Reason: hemorrhoids) Qty: 30 3RF celecoxib [Celebrex] 200 mg capsule 200 mg PO BID Qty: 180 3RF Hold Instructions: Resume on 02/14/24. tramadol 50 mg tablet 50 mg PO Q6H PRN (Reason: pain) 7 Days Qty: 28 0RF Caltrate 600 plus D 600 mg-20 mcg (800 unit) tablet,chewable 1 tab PO DAILY hydrochlorothiazide 12.5 mg tablet 12.5 mg PO DAILY Qty: 90 3RF acetaminophen [Tylenol Arthritis Pain] 650 mg Tablet Extended Release 650 mg PO Q8H Biotin Plus 5,000 mcg- 10 mg Tablet 5,000 tab PO DAILY Held estradiol 2 mg tablet 2 mg PO DAILY Hold Instructions: Resume on 02/14/24. Rx Instructions: TAKE ONE TABLET BY MOUTH EVERY DAY Discharge Orders: Discharge Order (Routine); Ordered 07/03/24 Ordered By: Isra Robertson Other Ambulatory Orders: Physical Therapy Eval and Treat Outpatient (Order) Timeframe: 3 Days Facility: [facility] - Location: Physical Therapy Ordered By: Isra Robertson Referrals: [facility] Outpatient Therapy [Outside] Isra Robertson DO [Physician] - 07/17/24 8:00 am Discharge Diet: Regular Discharge Activity: Limit activity as instructed and Use walker/crutches as instructed Patient Instructions: Oxycodone, Rapid Release (By mouth), Tramadol (By mouth), Apixaban (By mouth), Acute Wound Care (DC), Total Knee Replacement (GEN), Post Anesthesia Care Activity Restrictions/Additional Instructions: Orthopedic DC instructions Jerrod Dressing--Keep dressing on and dry. After 3 days you can remove some of the dressing and shower. disconnect battery pack when showering. Jerrod dressing will stay on until follow up appt in 2 weeks. The battery pack for the dressing will at 5-7 days. Battery pack can be removed and discarded once batteries . Patient may weight-bear as tolerate to the operative extremity Utilize walker as needed Encourage knee range of motion Ice and elevate as needed for pain and swelling Take pain medication as prescribed Take antinausea medication as needed HOld Estradiol as this can affect blood clotting while on the blood thinner Pain medication can cause constipation. take [id number] stool softeners and or MiraLAX. Take prescribed Eliquis twice daily for the next 14 days for blood clot prevention May supplement for pain with ibuprofen [id number] as needed No baths or soaks Follow-up in the orthopedic office in 2 weeks Contact the office for any questions or concerns Discharge Attestations Time Spent in Discharge Care*: less than 30 min Quality Metrics Clinical Quality Measures [ No reported AMI, CVA or VTE this stay] Coding Level of Care Code Acute Code for Inderjit Rosenthal
--- NOTE | 2024-07-03 12:58 | PC.NURSE ---
patient care nurse advised property underwriter that patient does not want a pcp follow up scheduled at this time.
== END 2024-07-03 13:10 | disposition home or self-care (01) ==
LOC: MEDSURG 10:48
PROVIDERS: Physician Assistant; Admitting Provider Student in an Organized Health Care Education/Training Program; PCP Family Medicine; Visit Provider Student in an Organized Health Care Education/Training Program
PROC: 8E0Y0CZ Robotic Assisted Procedure of Lower Extremity, Open Approach (ICD-10-PCS; CPT 27447; principal; 2024-07-02 08:05)
DX: M17.12 Unilateral primary osteoarthritis, left knee (principal); I10 Essential (primary) hypertension
CPT/HCPCS: 20985; 27447; 36415; 73562; 80048; 85025; 86850; 86900; 97110; 97116; 97161; 97165; C1776; G0378; J0131; J0171; J0690; J1100; J1171; J1885; J2250; J2405; J2704; J2795; J3370; J7030; J7120

== ENCOUNTER 2024-07-07 12:48 | Outpatient (RCR) | payer OTHER, SELFPAY | END 2024-07-17 23:59 | disposition home or self-care (01) | LOC: SPT 12:48 | PROVIDERS: PCP Nurse Practitioner Adult Health; Visit Provider Student in an Organized Health Care Education/Training Program | DX: M17.12 Unilateral primary osteoarthritis, left knee (principal) | CPT/HCPCS: 97110; 97161 ==

== ENCOUNTER → 2024-07-17 08:01 | Outpatient (BNVA) | payer OTHER, SELFPAY | PROVIDERS: PCP Nurse Practitioner Adult Health; Visit Provider Student in an Organized Health Care Education/Training Program | DX: Z96.652 Presence of left artificial knee joint (principal) | CPT/HCPCS: 73560; 73565 ==

== ENCOUNTER 2024-07-18 06:00 | Outpatient (RCR) | payer OTHER, SELFPAY | END 2024-08-07 23:59 | disposition home or self-care (01) | LOC: SPT 06:00 | PROVIDERS: PCP Nurse Practitioner Adult Health; Visit Provider Student in an Organized Health Care Education/Training Program | DX: M17.12 Unilateral primary osteoarthritis, left knee (principal) | CPT/HCPCS: 97110 ==

== ENCOUNTER 2024-07-23 12:50 | Outpatient (CLI) | payer OTHER, SELFPAY ==
--- NOTE | 2024-07-23 12:53 | MM_ITS ---
WS: [id number] BILATERAL 3D TOMOSYNTHESIS DIGITAL SCREENING MAMMOGRAM WITH CAD CLINICAL INFORMATION: SCREENING HISTORY: Screening mammogram. No current complaints. COMPARISON: 2020 TECHNIQUE: Bilateral CC and MLO. FINDINGS: The breast are composed of extremely dense tissue, which can limit the detection of small underlying mass lesions. No suspicious focal mass, asymmetry, calcifications, or architectural distortion. No ev idence of malignancy. Scattered diffuse punctate calcifications similar to previous MM/MM [facility] tomosynthesis [id number] IMPRESSION: DENSITY: The breasts are extremely dense, which lowers the sensitivity of mammo graphy. BI-RADS: 2 - Benign FOLLOW UP: 1 Year Follow-up Recommend return to annual screening mammography.
== END 2024-07-23 12:51 | disposition home or self-care (01) ==
PROVIDERS: PCP Family Medicine; Visit Provider Family Medicine
DX: Z12.31 Encounter for screening mammogram for malignant neoplasm of breast (principal); R92.333 Mammographic heterogeneous density, bilateral breasts; R92.1 Mammographic calcification found on diagnostic imaging of breast
CPT/HCPCS: 77063; 77067

== ENCOUNTER → 2024-08-28 07:40 | Outpatient (BNVA) | payer OTHER, SELFPAY | PROVIDERS: PCP Family Medicine; Visit Provider Physician Assistant | DX: Z96.652 Presence of left artificial knee joint (principal) | CPT/HCPCS: 73560; 73565 ==

== ENCOUNTER → 2024-12-12 11:32 | Outpatient (BNVA) | payer OTHER, MEDICARE, SELFPAY | PROVIDERS: Visit Provider Family Medicine | DX: Z00.00 Encounter for general adult medical examination without abnormal findings (principal) | CPT/HCPCS: 80053; 80061; 84443; 85025 ==

== ENCOUNTER → 2024-12-18 11:30 | Outpatient (BNVA) | payer OTHER, MEDICARE, SELFPAY | PROVIDERS: Family Provider Family Medicine; PCP Family Medicine; Visit Provider Family Medicine | DX: R79.89 Other specified abnormal findings of blood chemistry (principal) | CPT/HCPCS: 84439 ==

== ENCOUNTER → 2024-12-30 07:29 | Outpatient (BNVA) | payer OTHER, SELFPAY | PROVIDERS: Family Provider Family Medicine; PCP Family Medicine; Visit Provider Student in an Organized Health Care Education/Training Program | DX: Z96.652 Presence of left artificial knee joint (principal) | CPT/HCPCS: 73560; 73565 ==

== ENCOUNTER → 2025-04-03 09:34 | Outpatient (BNVA) | payer MEDICARE, SELFPAY | PROVIDERS: Family Provider Family Medicine; PCP Family Medicine; Visit Provider Family Medicine | DX: E03.9 Hypothyroidism, unspecified (principal) | CPT/HCPCS: 84439; 84443 ==

== ENCOUNTER 2025-08-03 13:40 | Outpatient (CLI) | payer MEDICARE, SELFPAY ==
--- NOTE | 2025-08-03 13:43 | MM_ITS ---
WS: [id number] BILATERAL 3D TOMOSYNTHESIS DIGITAL SCREENING MAMMOGRAM WITH CAD CLINICAL INFORMATION: SCREENING HISTORY: Screening mammogram. No current complaints. COMPARISON: 2023 TECHNIQUE: Bilateral CC and MLO. FINDINGS: The breast are composed of extremely dense tissue, which can limit the detection of small underlying mass lesions. No suspicious focal mass, asymmetry, calcifications, or architectural distortion. No evidence of malignancy. Diffuse tiny calcifications LEFT greater than RIGHT breast unchanged. MM/MM [facility] tomosynthesis [id number] IMPRESSION: DENSITY: The breasts are extremely dense, which lowers the sensitivity of mammo graphy. BI-RADS: 2 - Benign FOLLOW UP: 1 Year Follow-up Recommend return to annual screening mammography.
== END 2025-08-03 13:41 | disposition home or self-care (01) ==
LOC: RAD 13:42
PROVIDERS: Family Provider Family Medicine; PCP Family Medicine; Visit Provider Family Medicine
DX: Z12.31 Encounter for screening mammogram for malignant neoplasm of breast (principal); R92.343 Mammographic extreme density, bilateral breasts; R92.1 Mammographic calcification found on diagnostic imaging of breast
CPT/HCPCS: 77063; 77067